=== PATIENT | male | born 1950 | race Caucasian/White ===

== ENCOUNTER 2021-12-13 11:57 | Emergency (ER) | payer MEDICARE, OTHER ==
[~2021-12-13] VITALS: Ht 182.9 cm; Wt 72.3 kg
[2021-12-13] MEDS ORDERED: HYDROCODONE/APAP 10/325MG TABLET ONE (12:59)
[2021-12-13] MEDS: HYDROCODONE/APAP 10/325MG TABLET PO ONE (13:02)
[2021-12-13 14:55] VITALS: BP 116/75
== END 2021-12-13 14:55 | disposition home or self-care (01) ==
LOC: ER 12:00
DX: G89.29 Other chronic pain (principal); M54.2 Cervicalgia; M19.90 Unspecified osteoarthritis, unspecified site; I10 Essential (primary) hypertension
CPT/HCPCS: 72125-TC

== ENCOUNTER 2022-11-30 19:49 | Emergency (ER) | payer MEDICARE, OTHER ==
[~2022-11-30] VITALS: Ht 190.5 cm; Wt 77.1 kg
[2022-11-30 20:15] VITALS: BP 142/81
--- NOTE | 2022-11-30 20:58 | NUR ---
Patient discharged to home in stable condition. Written and verbal after care instructions given. Patient verbalizes understanding of instruction.
== END 2022-11-30 21:02 | disposition home or self-care (01) ==
LOC: ER 19:55
DX: G89.29 Other chronic pain (principal); M54.50 Low back pain, unspecified; I10 Essential (primary) hypertension

== ENCOUNTER 2023-03-16 06:58 | Inpatient (IN) | payer MEDICARE, OTHER ==
[~2023-03-16] VITALS: Ht 190.5 cm; Wt 71.7 kg
[2023-03-16] MEDS ORDERED: OLANZAPINE 10 MG VIAL IM ONE ×3 (07:21→11:00)
[2023-03-16 07:42] LABS: BASOPHILS # (AUTO) 0.1 K/uL (0.0-0.2); BASOPHILS % (AUTO) 0.7 % (0.0-2.0); EOSINOPHILS % (AUTO) 0.4 % (0.0-6.0); HEMATOCRIT 42 % (39-51); HEMOGLOBIN 13.3 g/dL (13.5-17.5); LYMPHOCYTES # (AUTO) 1.2 K/uL (0.8-4.8); LYMPHOCYTES % (AUTO) 13.2 % (20.0-44.0); MEAN CORPUSCULAR HEMOGLOBIN 30 PG (26.0-33.0); MEAN CORPUSCULAR HGB CONC 32 g/dl (31.0-36.0); MEAN CORPUSCULAR VOLUME 93 fL (80-96); MONOCYTES # (AUTO) 0.6 K/uL (0.1-1.30); MONOCYTES % (AUTO) 6.4 % (2.0-12.0); NEUTROPHILS # (AUTO) 7.2 K/uL (1.8-8.9); NEUTROPHILS % (AUTO) 79.3 % (43.0-81.0); PLATELET COUNT (AUTO) 261 K/uL (150-450); RED BLOOD CELL COUNT(AUTO) 4.49 MIL/uL (4.5-6.0); RED CELL DISTRIBUTION WIDTH 15.4 % (11.5-15.0); WHITE BLOOD COUNT (AUTO) 9.1 K/uL (4.3-11.0)
[2023-03-16 07:57] LABS: ALANINE AMINOTRANSFERASE 25 U/L (12-78); ALBUMIN 4.1 g/dL (3.4-5.0); ALKALINE PHOSPHATASE 129 U/L (46-116); ASPARTATE AMINOTRANSFERASE 26 U/L (15-37); BILIRUBIN,DIRECT 0.2 mg/dL (0.0-0.2); BILIRUBIN,TOTAL 0.5 mg/dL (0.2-1.0); CALCIUM, SERUM 9.7 mg/dL (8.5-10.1); CARBON DIOXIDE 28 mmol/L (21-32); CHLORIDE 104 mmol/L (98-107); CREATININE 1.4 mg/dL (0.6-1.3); GLUCOSE 94 mg/dL (74-106); POTASSIUM 3.5 mmol/L (3.5-5.1); SODIUM SERUM 141 mmol/L (136-145); TOTAL PROTEIN, SERUM 8.5 g/dL (6.4-8.2); UREA NITROGEN, BLOOD 11 mg/dL (7-18)
[2023-03-16 08:00] LABS: ACETAMINOPHEN <10 ug/ml (10-30); ALCOHOL, BLOOD < 3 mg/dL (0-10); SALICYLATE 1.5 mg/dL (2.8-20.0)
[2023-03-16 08:16] LABS: APPEARANCE,URINE CLEAR (CLEAR); BILIRUBIN,URINE NEGATIVE (NEGATIVE); BLOOD, URINE NEGATIVE Ery/uL (NEGATIVE); COLOR,URINE YELLOW (YELLOW); KETONES,URINE NEGATIVE (NEGATIVE); LEUKOCYTE ESTERASE ,URINE NEGATIVE (NEGATIVE); NITRITE, URINE NEGATIVE (NEGATIVE); PH,URINE 7.5 (5.0-8.0); PROTEIN,URINE TRACE mg/dl (NEGATIVE); UGLUCOSE NEGATIVE (NEGATIVE); UROBILINOGEN,URINE 0.2 EU/dL (0.2)
[2023-03-16 08:29] LABS: AMPHETAMINE, URINE NEGATIVE (NEGATIVE); BARBITURATE, URINE NEGATIVE (NEGATIVE); BENZODIAZEPINE, URINE NEGATIVE (NEGATIVE); CANNABINOID, URINE POSITIVE (NEGATIVE); COCCAINE, URINE NEGATIVE (NEGATIVE); OPIATE, URINE NEGATIVE (NEGATIVE); PHENCYCLIDINE SCREEN,URINE NEGATIVE (NEGATIVE)
[2023-03-16] MEDS ORDERED: QUET100T PO (09:39)
[2023-03-16] MEDS ORDERED: HYDR-3976 PO (09:39)
[2023-03-16] MEDS ORDERED: AMLO-212 PO (09:39)
[2023-03-16] MEDS ORDERED: IPRA4AER INH (09:39)
[2023-03-16] MEDS ORDERED: LINA290C PO (09:39)
[2023-03-16] MEDS ORDERED: ALBU18HF2 INH (09:39)
[2023-03-16] MEDS ORDERED: SIME180C47 PO (09:42)
[2023-03-16] MEDS ORDERED: DOCU100C58 PO (09:42)
[2023-03-16 10:30] VITALS: BP 136/90; TEMP 97.4; O2SAT 96
[2023-03-16] MEDS ORDERED: MAG HYDROX/AL HYDROX/SIMETH 30 ML UDC PO PRN (10:30)
[2023-03-16] MEDS ORDERED: ACETAMINOPHEN 325 MG TABLET PO PRN (10:30)
[2023-03-16] MEDS ORDERED: LORAZEPAM 0.5 MG TABLET PO PRN (10:30)
[2023-03-16] MEDS ORDERED: MAGNESIUM HYDROXIDE 30 ML UDC PO PRN (10:30)
[2023-03-16] MEDS ORDERED: BLOOD SUGAR DIAGNOSTIC 1 EACH STRIP IN ONE (10:30)
[2023-03-16] MEDS ORDERED: HYDROCODONE/APAP 7.5/325MG 1 EACH TABLET PO PRN (14:00)
[2023-03-16] MEDS ORDERED: ALBUTEROL FS 2.5 MG/3 ML VIAL.NEB NEB PRN (14:00)
[2023-03-16 16:00] VITALS: BP 149/97; TEMP 97.6; O2SAT 96
[2023-03-16] MEDS: HYDROCODONE/APAP 5/325MG TABLET PO PRN (16:43)
[2023-03-16 18:04] LABS: CREATININE, URINE 72.6 MG/DL (30.0-125.0); URINE TOTAL PROTEIN 23.2 mg/dL (0-11.9)
[2023-03-16 20:00] VITALS: BP 129/82; TEMP 98; O2SAT 98
[2023-03-16] MEDS: OLANZAPINE ZYDIS 5 MG TAB.RAPDIS PO SCH (22:04)
[2023-03-16] MEDS: ZOLPIDEM TARTRATE 5 MG TABLET PO PRN (22:10)
[2023-03-17] MEDS: AMLODIPINE BESYLATE 5 MG TABLET PO SCH (08:46)
[2023-03-17] MEDS: NICOTINE PATCH (14MG) 14 MG PATCH.TD24 TD SCH (08:46)
[2023-03-17] MEDS: OLANZAPINE ZYDIS 5 MG TAB.RAPDIS PO SCH ×2 (08:50→21:46)
[2023-03-17] MEDS: DOCUSATE SODIUM 100 MG CAPSULE PO SCH (08:50)
[2023-03-17] MEDS: ZOLPIDEM TARTRATE 5 MG TABLET PO PRN (23:13)
[2023-03-18 08:00] VITALS: BP 100/59; TEMP 98; O2SAT 100
[2023-03-18] MEDS: NICOTINE PATCH (14MG) 14 MG PATCH.TD24 TD SCH (08:04)
[2023-03-18] MEDS: DOCUSATE SODIUM 100 MG CAPSULE PO SCH (08:04)
[2023-03-18] MEDS: AMLODIPINE BESYLATE 5 MG TABLET PO SCH (08:05)
[2023-03-18] MEDS: OLANZAPINE ZYDIS 5 MG TAB.RAPDIS PO SCH ×2 (08:05→21:15)
[2023-03-18 15:14] LABS: CHOLESTEROL 192 mg/dL (<200); HDL CHOLESTEROL 75 mg/dL (40-60); LDL 88 mg/dL (0-99); TRIGLYCERIDES 163 mg/dL (30-150)
[2023-03-18 16:14] VITALS: BP 103/71; TEMP 98.7; O2SAT 97
[2023-03-18 20:20] VITALS: BP 118/78; TEMP 97.9; O2SAT 97
[2023-03-18] MEDS: HYDROCODONE/APAP 5/325MG TABLET PO PRN (22:24)
[2023-03-19 07:41] LABS: BASOPHILS % (AUTO) 0.9 % (0.0-2.0); EOSINOPHILS # (AUTO) 0.1 K/uL (0.0-0.7); EOSINOPHILS % (AUTO) 2.4 % (0.0-6.0); HEMATOCRIT 38 % (39-51); HEMOGLOBIN 12.2 g/dL (13.5-17.5); LYMPHOCYTES # (AUTO) 2.4 K/uL (0.8-4.8); LYMPHOCYTES % (AUTO) 50.6 % (20.0-44.0); MEAN CORPUSCULAR HEMOGLOBIN 30 PG (26.0-33.0); MEAN CORPUSCULAR HGB CONC 32 g/dl (31.0-36.0); MEAN CORPUSCULAR VOLUME 93 fL (80-96); MONOCYTES # (AUTO) 0.4 K/uL (0.1-1.30); MONOCYTES % (AUTO) 9.1 % (2.0-12.0); NEUTROPHILS # (AUTO) 1.8 K/uL (1.8-8.9); PLATELET COUNT (AUTO) 218 K/uL (150-450); RED BLOOD CELL COUNT(AUTO) 4.09 MIL/uL (4.5-6.0); RED CELL DISTRIBUTION WIDTH 15.1 % (11.5-15.0); WHITE BLOOD COUNT (AUTO) 4.8 K/uL (4.3-11.0)
[2023-03-19 08:00] VITALS: BP 99/74; TEMP 98.1; O2SAT 97
[2023-03-19 08:13] LABS: ALBUMIN 2.8 g/dL (3.4-5.0); BILIRUBIN,TOTAL 0.3 mg/dL (0.2-1.0); CALCIUM, SERUM 8.7 mg/dL (8.5-10.1); CREATININE 1.4 mg/dL (0.6-1.3); PHOSPHORUS 3.5 mg/dL (2.5-4.9); POTASSIUM 3.4 mmol/L (3.5-5.1); TOTAL PROTEIN, SERUM 6.5 g/dL (6.4-8.2)
[2023-03-19] MEDS: AMLODIPINE BESYLATE 5 MG TABLET PO SCH (09:00)
[2023-03-19] MEDS: NICOTINE PATCH (14MG) 14 MG PATCH.TD24 TD SCH (09:30)
[2023-03-19] MEDS: DOCUSATE SODIUM 100 MG CAPSULE PO SCH (09:30)
[2023-03-19] MEDS: OLANZAPINE ZYDIS 5 MG TAB.RAPDIS PO SCH ×2 (09:30→21:40)
[2023-03-19] MEDS ORDERED: POTASSIUM CHLORIDE 20 MEQ TAB.PRT.SR PO SCH (11:00)
[2023-03-19 15:55] VITALS: BP 99/74; TEMP 97.8; O2SAT 97
[2023-03-19 15:57] VITALS: BP 101/76; TEMP 97.8; O2SAT 92
[2023-03-19 16:00] VITALS: BP 101/76; TEMP 97.8; O2SAT 92
[2023-03-19] MEDS: HYDROCODONE/APAP 5/325MG TABLET PO PRN (17:20)
[2023-03-19 20:20] VITALS: BP 96/58; TEMP 98.4; O2SAT 97
[2023-03-20 08:00] VITALS: BP 119/81; TEMP 98.7; O2SAT 97
[2023-03-20] MEDS: AMLODIPINE BESYLATE 5 MG TABLET PO SCH (09:36)
[2023-03-20] MEDS: NICOTINE PATCH (14MG) 14 MG PATCH.TD24 TD SCH (09:37)
[2023-03-20] MEDS: DOCUSATE SODIUM 100 MG CAPSULE PO SCH (09:37)
[2023-03-20] MEDS: OLANZAPINE ZYDIS 5 MG TAB.RAPDIS PO SCH ×2 (09:37→20:37)
[2023-03-20 16:00] VITALS: BP 121/93; TEMP 98.4; O2SAT 99
[2023-03-20 20:06] VITALS: BP 113/78; TEMP 98.6; O2SAT 98
[2023-03-21 08:00] VITALS: BP 121/91; TEMP 97.7; O2SAT 97
[2023-03-21] MEDS: NICOTINE PATCH (14MG) 14 MG PATCH.TD24 TD SCH (08:35)
[2023-03-21] MEDS: AMLODIPINE BESYLATE 5 MG TABLET PO SCH (08:36)
[2023-03-21] MEDS: OLANZAPINE ZYDIS 5 MG TAB.RAPDIS PO SCH ×2 (08:36→21:00)
[2023-03-21] MEDS: DOCUSATE SODIUM 100 MG CAPSULE PO SCH (08:36)
[2023-03-21 16:00] VITALS: BP 101/68; TEMP 97.9; O2SAT 100
[2023-03-21 20:00] VITALS: BP 127/90; TEMP 97.5; O2SAT 99
[2023-03-22 08:00] VITALS: BP 109/73; TEMP 97.7; O2SAT 98
[2023-03-22] MEDS: DOCUSATE SODIUM 100 MG CAPSULE PO SCH (08:25)
[2023-03-22] MEDS: NICOTINE PATCH (14MG) 14 MG PATCH.TD24 TD SCH (08:25)
[2023-03-22] MEDS: OLANZAPINE ZYDIS 5 MG TAB.RAPDIS PO SCH ×2 (08:25→21:00)
[2023-03-22] MEDS: AMLODIPINE BESYLATE 5 MG TABLET PO SCH (08:26)
[2023-03-22 16:00] VITALS: BP 113/69; TEMP 98.9; O2SAT 96
[2023-03-22] MEDS: HYDROCODONE/APAP 5/325MG TABLET PO PRN (19:40)
[2023-03-22 20:47] VITALS: BP 110/72; TEMP 98; O2SAT 99
[2023-03-23 07:22] LABS: BASOPHILS # (AUTO) 0.1 K/uL (0.0-0.2); BASOPHILS % (AUTO) 1.2 % (0.0-2.0); EOSINOPHILS # (AUTO) 0.1 K/uL (0.0-0.7); EOSINOPHILS % (AUTO) 2.3 % (0.0-6.0); HEMATOCRIT 41 % (39-51); HEMOGLOBIN 13.2 g/dL (13.5-17.5); LYMPHOCYTES # (AUTO) 2.1 K/uL (0.8-4.8); LYMPHOCYTES % (AUTO) 43.8 % (20.0-44.0); MEAN CORPUSCULAR HEMOGLOBIN 30 PG (26.0-33.0); MEAN CORPUSCULAR HGB CONC 32 g/dl (31.0-36.0); MEAN CORPUSCULAR VOLUME 94 fL (80-96); MONOCYTES # (AUTO) 0.5 K/uL (0.1-1.30); MONOCYTES % (AUTO) 10.2 % (2.0-12.0); NEUTROPHILS % (AUTO) 42.5 % (43.0-81.0); PLATELET COUNT (AUTO) 235 K/uL (150-450); RED BLOOD CELL COUNT(AUTO) 4.42 MIL/uL (4.5-6.0); RED CELL DISTRIBUTION WIDTH 14.8 % (11.5-15.0); WHITE BLOOD COUNT (AUTO) 4.8 K/uL (4.3-11.0)
[2023-03-23 07:45] LABS: ALBUMIN 3.1 g/dL (3.4-5.0); BILIRUBIN,TOTAL 0.3 mg/dL (0.2-1.0); CALCIUM, SERUM 9.5 mg/dL (8.5-10.1); CREATININE 1.3 mg/dL (0.6-1.3); MAGNESIUM 2.3 mg/dL (1.8-2.4); PHOSPHORUS 3.6 mg/dL (2.5-4.9); POTASSIUM 4.2 mmol/L (3.5-5.1); TOTAL PROTEIN, SERUM 7.1 g/dL (6.4-8.2)
[2023-03-23 08:00] VITALS: BP 104/78; TEMP 97.9; O2SAT 100
[2023-03-23] MEDS: DOCUSATE SODIUM 100 MG CAPSULE PO SCH (08:38)
[2023-03-23] MEDS: OLANZAPINE ZYDIS 5 MG TAB.RAPDIS PO SCH ×2 (08:38→21:07)
[2023-03-23] MEDS: NICOTINE PATCH (14MG) 14 MG PATCH.TD24 TD SCH (08:38)
[2023-03-23] MEDS: AMLODIPINE BESYLATE 5 MG TABLET PO SCH (08:39)
[2023-03-23] MEDS: HYDROCODONE/APAP 5/325MG TABLET PO PRN (14:31)
[2023-03-23 16:00] VITALS: BP 91/60; TEMP 98; O2SAT 100
[2023-03-23 20:00] VITALS: BP 115/71; TEMP 97.6; O2SAT 99
[2023-03-24 08:07] VITALS: BP 95/77; TEMP 97.5; O2SAT 96
[2023-03-24] MEDS: AMLODIPINE BESYLATE 5 MG TABLET PO SCH (08:54)
[2023-03-24] MEDS: ENSURE ENLIVE 237 ML LIQUID (VANILLA) PO SCH (08:54)
[2023-03-24] MEDS: OLANZAPINE ZYDIS 5 MG TAB.RAPDIS PO SCH ×2 (08:55→20:20)
[2023-03-24] MEDS: DOCUSATE SODIUM 100 MG CAPSULE PO SCH (08:55)
[2023-03-24] MEDS: NICOTINE PATCH (14MG) 14 MG PATCH.TD24 TD SCH (08:55)
[2023-03-24 15:58] VITALS: BP 124/76; TEMP 97.9; O2SAT 97
[2023-03-24] MEDS: HYDROCODONE/APAP 5/325MG TABLET PO PRN (16:24)
[2023-03-24 20:18] VITALS: BP 98/65; TEMP 98.1; O2SAT 96
[2023-03-24] MEDS: ZOLPIDEM TARTRATE 5 MG TABLET PO PRN (22:00)
[2023-03-25 08:00] VITALS: BP 102/74; TEMP 97.9; O2SAT 97
[2023-03-25] MEDS: DOCUSATE SODIUM 100 MG CAPSULE PO SCH (08:10)
[2023-03-25] MEDS: NICOTINE PATCH (14MG) 14 MG PATCH.TD24 TD SCH (08:10)
[2023-03-25] MEDS: OLANZAPINE ZYDIS 5 MG TAB.RAPDIS PO SCH ×2 (08:10→21:47)
[2023-03-25] MEDS: HYDROCODONE/APAP 5/325MG TABLET PO PRN ×2 (08:11→18:42)
[2023-03-25] MEDS: AMLODIPINE BESYLATE 5 MG TABLET PO SCH (08:12)
[2023-03-25] MEDS: ENSURE ENLIVE 237 ML LIQUID (VANILLA) PO SCH (08:23)
[2023-03-25 16:00] VITALS: BP 99/66; TEMP 98.6; O2SAT 100
[2023-03-25 20:17] VITALS: BP 103/77; TEMP 99; O2SAT 97
[2023-03-25] MEDS: ZOLPIDEM TARTRATE 5 MG TABLET PO PRN (21:48)
[2023-03-26 08:00] VITALS: BP 100/69; TEMP 98; O2SAT 95
[2023-03-26] MEDS: AMLODIPINE BESYLATE 5 MG TABLET PO SCH (08:49)
[2023-03-26] MEDS: ENSURE ENLIVE 237 ML LIQUID (VANILLA) PO SCH (08:49)
[2023-03-26] MEDS: NICOTINE PATCH (14MG) 14 MG PATCH.TD24 TD SCH (08:49)
[2023-03-26] MEDS: DOCUSATE SODIUM 100 MG CAPSULE PO SCH (08:49)
[2023-03-26] MEDS: OLANZAPINE ZYDIS 5 MG TAB.RAPDIS PO SCH ×2 (08:49→20:10)
[2023-03-26] MEDS: HYDROCODONE/APAP 5/325MG TABLET PO PRN ×2 (08:53→17:26)
[2023-03-26 16:00] VITALS: BP 100/55; TEMP 97.9; O2SAT 96
[2023-03-26 20:59] VITALS: BP 101/64; TEMP 98.8; O2SAT 98
[2023-03-26] MEDS: ZOLPIDEM TARTRATE 5 MG TABLET PO PRN (22:26)
[2023-03-27 08:00] VITALS: BP 119/83; TEMP 98.6; O2SAT 99
[2023-03-27] MEDS: OLANZAPINE ZYDIS 5 MG TAB.RAPDIS PO SCH (08:19)
[2023-03-27] MEDS: DOCUSATE SODIUM 100 MG CAPSULE PO SCH (08:19)
[2023-03-27] MEDS: HYDROCODONE/APAP 5/325MG TABLET PO PRN (08:19)
[2023-03-27] MEDS: NICOTINE PATCH (14MG) 14 MG PATCH.TD24 TD SCH (08:19)
[2023-03-27 08:20] VITALS: BP 118/93
[2023-03-27] MEDS: AMLODIPINE BESYLATE 5 MG TABLET PO SCH (08:20)
[2023-03-27] MEDS: ENSURE ENLIVE 237 ML LIQUID (VANILLA) PO SCH (08:20)
[2023-03-27] MEDS ORDERED: LINA290C PO (10:44)
[2023-03-27] MEDS ORDERED: DOCU100C58 PO (10:44)
[2023-03-27] MEDS ORDERED: ALBU18HF2 INH (10:44)
[2023-03-27] MEDS ORDERED: SIME180C47 PO (10:44)
[2023-03-27] MEDS ORDERED: AMLO-212 PO (10:44)
[2023-03-27] MEDS ORDERED: IPRA4AER INH (10:44)
[2023-03-27] MEDS ORDERED: HYDR-3976 PO (10:48)
== END 2023-03-27 14:40 | disposition home or self-care (01) | DRG 885 ==
LOC: ER 07:11 → GPS 09:47
PROVIDERS: ADMIT Psychiatry & Neurology Psychiatry; ATTEND Nurse Practitioner Acute Care
DX: F20.0 Paranoid schizophrenia (principal); N17.9 Acute kidney failure, unspecified; F29 Unspecified psychosis not due to a substance or known physiological condition; I10 Essential (primary) hypertension; M41.9 Scoliosis, unspecified; F03.90 Unspecified dementia, unspecified severity, without behavioral disturbance, psychotic disturbance, mood disturbance, and anxiety; F19.10 Other psychoactive substance abuse, uncomplicated; Z79.51 Long term (current) use of inhaled steroids; Z79.899 Other long term (current) drug therapy; D64.9 Anemia, unspecified; E88.9 Metabolic disorder, unspecified
CPT/HCPCS: 36415; 80048-TC; 80053-TC; 80061-TC; 80076-TC; 82570-TC; 82962-TC; 83735-TC; 84100-TC; 84300-TC; 85025-TC; G0480; J3490

== ENCOUNTER 2023-04-24 00:37 | Emergency (ER) | payer MEDICARE, OTHER ==
[~2023-04-24] VITALS: Ht 190.5 cm; Wt 72.6 kg
[~2023-04-24 00:37] MED LIST: ALBU18HF2 INH; AMLO-212 PO; DOCU100C58 PO; HYDR-3976 PO; IPRA4AER INH; LINA290C PO; SIME180C47 PO
[2023-04-24 08:49] VITALS: BP 135/66; TEMP 98.2; O2SAT 98
== END 2023-04-24 08:50 ==
LOC: ER 00:38
DX: M54.50 Low back pain, unspecified (principal); I10 Essential (primary) hypertension; E11.9 Type 2 diabetes mellitus without complications; F20.9 Schizophrenia, unspecified; Z79.899 Other long term (current) drug therapy; Z60.2 Problems related to living alone
CPT/HCPCS: 72131-TC

== ENCOUNTER 2023-07-09 02:15 | Inpatient (IN) | payer MEDICARE, OTHER ==
[2023-07-09] VITALS (15 sets, daily range): BP systolic 118–160; BP diastolic 86–103; TEMP 97.5–98.2; O2SAT 100
[~2023-07-09] VITALS: Ht 190.5 cm; Wt 77.1 kg
[2023-07-09] MEDS ORDERED: NALOXONE PREFILLED SYRINGE 2 MG/2 ML SYRINGE ONE ×3 (02:43→02:59)
[2023-07-09] MEDS ORDERED: NALOXONE HCL 0.4 MG/ML AMPUL IV ONE (03:00)
[2023-07-09 03:11] LABS: BASOPHILS % (AUTO) 0.3 % (0.0-2.0); EOSINOPHILS # (AUTO) 0.1 K/uL (0.0-0.7); EOSINOPHILS % (AUTO) 1.8 % (0.0-6.0); HEMATOCRIT 36 % (39-51); HEMOGLOBIN 11.6 g/dL (13.5-17.5); LYMPHOCYTES # (AUTO) 1.3 K/uL (0.8-4.8); LYMPHOCYTES % (AUTO) 22.1 % (20.0-44.0); MEAN CORPUSCULAR HEMOGLOBIN 30 PG (26.0-33.0); MEAN CORPUSCULAR HGB CONC 32 g/dl (31.0-36.0); MEAN CORPUSCULAR VOLUME 93 fL (80-96); MONOCYTES # (AUTO) 0.5 K/uL (0.1-1.30); MONOCYTES % (AUTO) 9.1 % (2.0-12.0); NEUTROPHILS # (AUTO) 3.8 K/uL (1.8-8.9); NEUTROPHILS % (AUTO) 66.7 % (43.0-81.0); PLATELET COUNT (AUTO) 200 K/uL (150-450); RED BLOOD CELL COUNT(AUTO) 3.89 MIL/uL (4.5-6.0); RED CELL DISTRIBUTION WIDTH 15.4 % (11.5-15.0); WHITE BLOOD COUNT (AUTO) 5.7 K/uL (4.3-11.0)
[2023-07-09 03:14] LABS: ADD URINE CULTURE YES; APPEARANCE,URINE CLEAR (CLEAR); BACTERIA,URINE Few /HPF (None Seen); BILIRUBIN,URINE NEGATIVE (NEGATIVE); BLOOD, URINE NEGATIVE Ery/uL (NEGATIVE); COLOR,URINE YELLOW (YELLOW); KETONES,URINE NEGATIVE (NEGATIVE); LEUKOCYTE ESTERASE ,URINE NEGATIVE (NEGATIVE); NITRITE, URINE POSITIVE (NEGATIVE); PH,URINE 5.5 (5.0-8.0); PROTEIN,URINE NEGATIVE (NEGATIVE); RBC,URINE 0-2 /HPF (0-2); SQUAMOUS EPITHELIAL CELL,UR Rare /HPF (None Seen); UGLUCOSE NEGATIVE (NEGATIVE); UROBILINOGEN,URINE 0.2 EU/dL (0.2)
[2023-07-09 03:21] LABS: CALCIUM, SERUM 9.4 mg/dL (8.5-10.1); CARBON DIOXIDE 27 mmol/L (21-32); CHLORIDE 105 mmol/L (98-107); CREATININE 1.7 mg/dL (0.6-1.3); GLUCOSE 111 mg/dL (74-106); POTASSIUM 3.5 mmol/L (3.5-5.1); SODIUM SERUM 140 mmol/L (136-145); UREA NITROGEN, BLOOD 15 mg/dL (7-18)
[2023-07-09 03:22] LABS: AMPHETAMINE, URINE NEGATIVE (NEGATIVE); BARBITURATE, URINE NEGATIVE (NEGATIVE); BENZODIAZEPINE, URINE NEGATIVE (NEGATIVE); CANNABINOID, URINE NEGATIVE (NEGATIVE); COCCAINE, URINE NEGATIVE (NEGATIVE); OPIATE, URINE NEGATIVE (NEGATIVE); PHENCYCLIDINE SCREEN,URINE NEGATIVE (NEGATIVE)
[2023-07-09 03:27] LABS: ACETAMINOPHEN < 10 ug/ml (10-30); ALANINE AMINOTRANSFERASE 16 U/L (12-78); ALBUMIN 3.4 g/dL (3.4-5.0); ALCOHOL, BLOOD < 3 mg/dL (0-10); ALKALINE PHOSPHATASE 109 U/L (46-116); ASPARTATE AMINOTRANSFERASE 14 U/L (15-37); BILIRUBIN,DIRECT 0.1 mg/dL (0.0-0.2); BILIRUBIN,TOTAL 0.2 mg/dL (0.2-1.0); SALICYLATE 2.5 mg/dL (2.8-20.0); TOTAL PROTEIN, SERUM 7.5 g/dL (6.4-8.2)
[2023-07-09] MEDS ORDERED: PROPOFOL 100 ML ONE (03:48)
[2023-07-09] MEDS ORDERED: PROPOFOL 100 ML IV PRN (04:00)
[2023-07-09] MEDS ORDERED: CEFTRIAXONE 1GM BAG (ER ONLY) 50 ML IV ONE ×2 (04:00→04:37)
[2023-07-09 04:32] LABS: THYROID STIMULATING HORMONE 1.092 uIU/mL (0.358-3.74)
[2023-07-09] MEDS ORDERED: ACETAMINOPHEN 650 MG/SUPP.RECT RC PRN (06:30)
[2023-07-09] MEDS ORDERED: Z GUARD REMEDY 4 OZ OINT TP PRN (06:30)
[2023-07-09] MEDS ORDERED: ONDANSETRON HCL/PF 4 MG/2 ML VIAL IVP PRN (06:30)
[2023-07-09] MEDS: PANTOPRAZOLE 40 MG VIAL IV SCH (08:20)
[2023-07-09] MEDS: HEPARIN SODIUM, PORCINE 5000 UNITS/1 ML VIAL SQ SCH ×2 (08:23→21:00)
[2023-07-09] MEDS: IV D5/0.45 NACL 1,000 ML IV PRN ×2 (08:25→20:53)
[2023-07-09] MEDS ORDERED: SUCCINYLCHOLINE CHLORIDE 20 MG/ML VIAL IV ONE (10:09)
[2023-07-09] MEDS ORDERED: ETOMIDATE 2 MG/ML VIAL IV ONE (10:09)
[2023-07-09] MEDS: PROPOFOL 100 ML IV PRN ×2 (15:03→20:45)
[2023-07-09 19:29] LABS: APPEARANCE,URINE CLEAR (CLEAR); BILIRUBIN,URINE NEGATIVE (NEGATIVE); BLOOD, URINE NEGATIVE Ery/uL (NEGATIVE); COLOR,URINE YELLOW (YELLOW); KETONES,URINE NEGATIVE (NEGATIVE); LEUKOCYTE ESTERASE ,URINE NEGATIVE (NEGATIVE); NITRITE, URINE NEGATIVE (NEGATIVE); PROTEIN,URINE NEGATIVE (NEGATIVE); UGLUCOSE NEGATIVE (NEGATIVE); UROBILINOGEN,URINE 0.2 EU/dL (0.2)
[2023-07-09 19:35] LABS: CREATININE, URINE 84.1 MG/DL (30.0-125.0); URINE TOTAL PROTEIN 15.1 mg/dL (0-11.9)
[2023-07-09 20:18] LABS: EOSINOPHIL,URINE None Seen
[2023-07-10] VITALS (25 sets, daily range): BP systolic 106–152; BP diastolic 80–104; TEMP 98–98.5; O2SAT 96–100
[2023-07-10] MEDS: PROPOFOL 100 ML IV PRN ×5 (00:48→09:40)
[2023-07-10] MEDS ORDERED: PROPOFOL 100 ML IV PRN ×2 (04:30→05:00)
[2023-07-10 05:42] LABS: BASOPHILS # (AUTO) 0.1 K/uL (0.0-0.2); BASOPHILS % (AUTO) 0.9 % (0.0-2.0); EOSINOPHILS # (AUTO) 0.1 K/uL (0.0-0.7); EOSINOPHILS % (AUTO) 1.4 % (0.0-6.0); HEMATOCRIT 41 % (39-51); HEMOGLOBIN 13.3 g/dL (13.5-17.5); LYMPHOCYTES # (AUTO) 1.2 K/uL (0.8-4.8); MEAN CORPUSCULAR HEMOGLOBIN 30 PG (26.0-33.0); MEAN CORPUSCULAR HGB CONC 33 g/dl (31.0-36.0); MEAN CORPUSCULAR VOLUME 93 fL (80-96); MONOCYTES # (AUTO) 0.6 K/uL (0.1-1.30); MONOCYTES % (AUTO) 7.7 % (2.0-12.0); NEUTROPHILS # (AUTO) 5.2 K/uL (1.8-8.9); PLATELET COUNT (AUTO) 192 K/uL (150-450); RED BLOOD CELL COUNT(AUTO) 4.39 MIL/uL (4.5-6.0); RED CELL DISTRIBUTION WIDTH 16.1 % (11.5-15.0); WHITE BLOOD COUNT (AUTO) 7.2 K/uL (4.3-11.0)
[2023-07-10 05:59] LABS: ALBUMIN 3.2 g/dL (3.4-5.0); BILIRUBIN,TOTAL 0.2 mg/dL (0.2-1.0); CALCIUM, SERUM 9.2 mg/dL (8.5-10.1); CREATININE 1.2 mg/dL (0.6-1.3); MAGNESIUM 1.9 mg/dL (1.8-2.4); PHOSPHORUS 3.2 mg/dL (2.5-4.9); POTASSIUM 3.6 mmol/L (3.5-5.1); TOTAL PROTEIN, SERUM 7.3 g/dL (6.4-8.2)
[2023-07-10] MEDS: CEFTRIAXONE 1 G in IV D5W 50 ML IV SCH (06:03)
[2023-07-10] MEDS: PANTOPRAZOLE 40 MG VIAL IV SCH (08:01)
[2023-07-10 08:02] LABS: ABG OXYGEN SATURATION 97.7 % (92.0-98.5); ABG PCO2 43.7 mmHg (35.0-45.0); ABG PH 7.396 (7.350-7.450); ABG PO2 106.4 mmHg (75.0-100.0); ABG TOTAL HEMOGLOBIN 14.1 G/dL (13.5-18.0); AaDO2 128.5 mmHg; COHb 0.7 % (0.5-1.5); MetHb 0.3 % (0.0-1.5); O2Hb 96.7 % (94.0-97.0); PEEP,BG 5 cm H2O; SITE, ABG Right Brachial; VT, ABG 450 mL
[2023-07-10] MEDS: IV D5/0.45 NACL 1,000 ML IV PRN ×2 (08:02→23:01)
[2023-07-10] MEDS: HEPARIN SODIUM, PORCINE 5000 UNITS/1 ML VIAL SQ SCH ×2 (08:06→21:33)
[2023-07-10] MEDS ORDERED: DC PROPOFOL WHEN EXTUBATED XX PRN (12:40)
[2023-07-11] VITALS (23 sets, daily range): BP systolic 130–155; BP diastolic 87–105; TEMP 98.4–209.1; O2SAT 91–99
[2023-07-11] MEDS: CEFTRIAXONE 1 G in IV D5W 50 ML IV SCH (05:00)
[2023-07-11 05:02] LABS: BASOPHILS # (AUTO) 0.2 K/uL (0.0-0.2); BASOPHILS % (AUTO) 2.3 % (0.0-2.0); EOSINOPHILS # (AUTO) 0.1 K/uL (0.0-0.7); EOSINOPHILS % (AUTO) 1.5 % (0.0-6.0); HEMATOCRIT 39 % (39-51); HEMOGLOBIN 12.8 g/dL (13.5-17.5); LYMPHOCYTES # (AUTO) 1.7 K/uL (0.8-4.8); LYMPHOCYTES % (AUTO) 19.5 % (20.0-44.0); MEAN CORPUSCULAR HEMOGLOBIN 30 PG (26.0-33.0); MEAN CORPUSCULAR HGB CONC 33 g/dl (31.0-36.0); MEAN CORPUSCULAR VOLUME 91 fL (80-96); MONOCYTES # (AUTO) 0.7 K/uL (0.1-1.30); NEUTROPHILS # (AUTO) 5.9 K/uL (1.8-8.9); NEUTROPHILS % (AUTO) 68.7 % (43.0-81.0); PLATELET COUNT (AUTO) 217 K/uL (150-450); RED BLOOD CELL COUNT(AUTO) 4.25 MIL/uL (4.5-6.0); RED CELL DISTRIBUTION WIDTH 15.4 % (11.5-15.0); WHITE BLOOD COUNT (AUTO) 8.5 K/uL (4.3-11.0)
[2023-07-11 05:20] LABS: CALCIUM, SERUM 8.8 mg/dL (8.5-10.1); CREATININE 1.3 mg/dL (0.6-1.3); MAGNESIUM 1.9 mg/dL (1.8-2.4); PHOSPHORUS 2.9 mg/dL (2.5-4.9); POTASSIUM 3.5 mmol/L (3.5-5.1)
[2023-07-11 08:09] LABS: PTH, INTACT 19 pg/mL (15-65)
[2023-07-11] MEDS ORDERED: IPRATROPIUM NEB FS 0.5 MG/2.5 ML AMPUL.NEB NEB PRN (09:00)
[2023-07-11] MEDS ORDERED: ALBUTEROL HALF STRENGTH 1.25 MG/3 ML VIAL.NEB NEB PRN (09:00)
[2023-07-11] MEDS: PANTOPRAZOLE 40 MG VIAL IV SCH (09:11)
[2023-07-11] MEDS: HEPARIN SODIUM, PORCINE 5000 UNITS/1 ML VIAL SQ SCH ×2 (09:26→21:12)
[2023-07-11 12:09] LABS: *SPE ALBUMIN 3.4 g/dL (2.9-4.4); *SPE ALPHA-1-GLOBULIN 0.3 g/dL (0.0-0.4); *SPE ALPHA-2-GLOBULIN 0.8 g/dL (0.4-1.0); *SPE BETA GLOBULIN 1.1 g/dL (0.7-1.3); *SPE GLOBULIN, TOTAL 3.5 g/dL (2.2-3.9); *SPE M-SPIKE Not Observed g/dL (Not Observed); *SPE PROTEIN TOTAL 6.9 g/dL (6.0-8.5); *SPEGAMMA GLOBULIN 1.4 g/dL (0.4-1.8)
[2023-07-11 12:42] LABS: ABG BASE EXCESS 2.7 mmol/L; ABG OXYGEN SATURATION 98.4 % (92.0-98.5); ABG PCO2 40.6 mmHg (35.0-45.0); ABG PH 7.441 (7.350-7.450); ABG TOTAL HEMOGLOBIN 14.2 G/dL (13.5-18.0); AaDO2 111.5 mmHg; COHb 0.6 % (0.5-1.5); MetHb 0.3 % (0.0-1.5); O2Hb 97.5 % (94.0-97.0); SITE, ABG Right Radial; VENT MODE, BG PS 15
[2023-07-11] MEDS: IV D5/0.45 NACL 1,000 ML IV PRN (13:33)
[2023-07-12] MEDS: IV D5/0.45 NACL 1,000 ML IV PRN (03:04)
[2023-07-12] MEDS ORDERED: CEFTRIAXONE 1GM BAG (ER ONLY) 50 ML IV ONE (04:33)
[2023-07-12] MEDS: CEFTRIAXONE 1 G in IV D5W 50 ML IV SCH (05:08)
[2023-07-12 07:17] LABS: BASOPHILS % (AUTO) 0.4 % (0.0-2.0); EOSINOPHILS # (AUTO) 0.1 K/uL (0.0-0.7); EOSINOPHILS % (AUTO) 1.2 % (0.0-6.0); HEMATOCRIT 39 % (39-51); LYMPHOCYTES # (AUTO) 1.8 K/uL (0.8-4.8); LYMPHOCYTES % (AUTO) 26.4 % (20.0-44.0); MEAN CORPUSCULAR HEMOGLOBIN 30 PG (26.0-33.0); MEAN CORPUSCULAR HGB CONC 33 g/dl (31.0-36.0); MEAN CORPUSCULAR VOLUME 92 fL (80-96); MONOCYTES # (AUTO) 0.7 K/uL (0.1-1.30); MONOCYTES % (AUTO) 9.5 % (2.0-12.0); NEUTROPHILS # (AUTO) 4.3 K/uL (1.8-8.9); NEUTROPHILS % (AUTO) 62.5 % (43.0-81.0); PLATELET COUNT (AUTO) 222 K/uL (150-450); RED BLOOD CELL COUNT(AUTO) 4.27 MIL/uL (4.5-6.0); RED CELL DISTRIBUTION WIDTH 14.9 % (11.5-15.0); WHITE BLOOD COUNT (AUTO) 6.9 K/uL (4.3-11.0)
[2023-07-12 07:22] LABS: ALBUMIN 2.8 g/dL (3.4-5.0); BILIRUBIN,TOTAL 0.5 mg/dL (0.2-1.0); CREATININE 1.3 mg/dL (0.6-1.3); MAGNESIUM 2.1 mg/dL (1.8-2.4); POTASSIUM 3.3 mmol/L (3.5-5.1); TOTAL PROTEIN, SERUM 7.3 g/dL (6.4-8.2)
[2023-07-12 07:51] LABS: CALCIUM, SERUM 9.2 mg/dL (8.5-10.1)
[2023-07-12] MEDS: PANTOPRAZOLE 40 MG VIAL IV SCH (08:28)
[2023-07-12] MEDS: HEPARIN SODIUM, PORCINE 5000 UNITS/1 ML VIAL SQ SCH (08:29)
[2023-07-12] MEDS: POTASSIUM CL. PREMIX PERIPHER. 50 ML IV SCH ×2 (09:38→11:39)
== END 2023-07-12 19:35 | DRG 917 ==
LOC: ER 02:16 → TRANSITION 05:31 → ICU 07:29 → MED 07-11 15:30
PROVIDERS: ADMIT Nurse Practitioner Acute Care
PROC: 5A1945Z Respiratory Ventilation, 24-96 Consecutive Hours (ICD-10-PCS; principal; 2023-07-09)
PROC: 0BH17EZ Insertion of Endotracheal Airway into Trachea, Via Natural or Artificial Opening (ICD-10-PCS; 2023-07-09)
DX: T40.2X1A Poisoning by other opioids, accidental (unintentional), initial encounter (principal); G92.8 Other toxic encephalopathy; J96.01 Acute respiratory failure with hypoxia; J96.02 Acute respiratory failure with hypercapnia; N39.0 Urinary tract infection, site not specified; J98.11 Atelectasis; N17.9 Acute kidney failure, unspecified; E11.22 Type 2 diabetes mellitus with diabetic chronic kidney disease; F20.9 Schizophrenia, unspecified; G89.29 Other chronic pain; K58.9 Irritable bowel syndrome, unspecified; N18.9 Chronic kidney disease, unspecified; E83.9 Disorder of mineral metabolism, unspecified; I12.9 Hypertensive chronic kidney disease with stage 1 through stage 4 chronic kidney disease, or unspecified chronic kidney disease; D64.9 Anemia, unspecified; M89.8X9 Other specified disorders of bone, unspecified site; Z20.822 Contact with and (suspected) exposure to COVID-19; Y92.009 Unspecified place in unspecified non-institutional (private) residence as the place of occurrence of the external cause
CPT/HCPCS: 31720; 36415; 36600; 70450-TC; 71045-TC; 76770-TC; 80048-TC; 80053-TC; 80061-TC; 80076-TC; 81001; 82140-TC; 82550-TC; 82570-TC; 82803-TC; 82962-TC; 83735-TC; 83970; 84100-TC; 84155; 84165; 84300-TC; 84443-TC; 84484-TC; 85025-TC; 87040-TC; 87086-TC; 92526; 92611-TC; 93307-TC; 94002-TC; 94003-TC; 94799-TC; A4223; C9113; G0378; G0480; J0330; J0696; J1644; J2310; J3480; J3490; J7060

== ENCOUNTER 2024-06-21 21:51 | Inpatient (IN) | payer MEDICARE, OTHER ==
[~2024-06-21] VITALS: Ht 185.4 cm; Wt 83.9 kg
[~2024-06-21 21:51] MED LIST changes: +ALBU8.5H8 IH; +AMLO5TAB4 PO; +HYDR-4303 PO; +IBUP-1955 PO; +IPRA4AER IH; +METH-647 PO; +NALO25TA PO; +NICO-761 TD; +OXYC10TA49 PO; +QUET100T PO; +SIME180C7 PO
[2024-06-21] MEDS ORDERED: HYDR-3980 PO (22:18)
[2024-06-21] MEDS ORDERED: HYDROCODONE/APAP 10/325MG TABLET ONE (22:26)
[2024-06-21] MEDS: HYDROCODONE/APAP 10/325MG TABLET PO ONE (22:30)
[2024-06-21 22:50] LABS: BASOPHILS % (AUTO) 0.2 % (0.0-2.0); HEMATOCRIT 48 % (39-51); HEMOGLOBIN 15.5 g/dL (13.5-17.5); LYMPHOCYTES # (AUTO) 1.9 K/uL (0.8-4.8); LYMPHOCYTES % (AUTO) 17.8 % (20.0-44.0); MEAN CORPUSCULAR HEMOGLOBIN 32 PG (26.0-33.0); MEAN CORPUSCULAR HGB CONC 32 g/dl (31.0-36.0); MEAN CORPUSCULAR VOLUME 98 fL (80-96); MONOCYTES # (AUTO) 0.6 K/uL (0.1-1.30); MONOCYTES % (AUTO) 5.1 % (2.0-12.0); NEUTROPHILS # (AUTO) 8.2 K/uL (1.8-8.9); NEUTROPHILS % (AUTO) 76.9 % (43.0-81.0); PLATELET COUNT (AUTO) 211 K/uL (150-450); RED BLOOD CELL COUNT(AUTO) 4.94 MIL/uL (4.5-6.0); WHITE BLOOD COUNT (AUTO) 10.7 K/uL (4.3-11.0)
[2024-06-21 23:12] LABS: ALANINE AMINOTRANSFERASE 15 U/L (12-78); ALKALINE PHOSPHATASE 97 U/L (46-116); ASPARTATE AMINOTRANSFERASE 31 U/L (15-37); BILIRUBIN,DIRECT 0.1 mg/dL (0.0-0.2); BILIRUBIN,TOTAL 0.7 mg/dL (0.2-1.0); CALCIUM, SERUM 9.4 mg/dL (8.5-10.1); CARBON DIOXIDE 25 mmol/L (21-32); CHLORIDE 95 mmol/L (98-107); GLUCOSE 97 mg/dL (74-106); SODIUM SERUM 137 mmol/L (136-145); TOTAL PROTEIN, SERUM 8.4 g/dL (6.4-8.2); UREA NITROGEN, BLOOD 33 mg/dL (7-18)
[2024-06-21 23:23] LABS: SALICYLATE 22.8 mg/dL (2.8-20.0)
[2024-06-21 23:24] LABS: ACETAMINOPHEN <10 ug/ml (10-30); ALCOHOL, BLOOD < 3 mg/dL (0-10)
[2024-06-21 23:37] LABS: APPEARANCE,URINE CLEAR (CLEAR); BILIRUBIN,URINE 1+ (NEGATIVE); BLOOD, URINE NEGATIVE Ery/uL (NEGATIVE); COLOR,URINE YELLOW (YELLOW); KETONES,URINE 1+ mg/dL (NEGATIVE); LEUKOCYTE ESTERASE ,URINE NEGATIVE (NEGATIVE); NITRITE, URINE NEGATIVE (NEGATIVE); PROTEIN,URINE 1+ mg/dl (NEGATIVE); UGLUCOSE NEGATIVE (NEGATIVE); UROBILINOGEN,URINE 0.2 EU/dL (0.2)
[2024-06-21] MEDS ORDERED: POTASSIUM CHLORIDE 20 MEQ TAB.PRT.SR PO ONE (23:57)
[2024-06-22] MEDS: POTASSIUM CHLORIDE 20 MEQ TAB.PRT.SR PO ONE (00:01)
[2024-06-22 00:03] LABS: AMPHETAMINE, URINE NEGATIVE (NEGATIVE); BARBITURATE, URINE NEGATIVE (NEGATIVE); BENZODIAZEPINE, URINE NEGATIVE (NEGATIVE); CANNABINOID, URINE NEGATIVE (NEGATIVE); COCCAINE, URINE NEGATIVE (NEGATIVE); OPIATE, URINE NEGATIVE (NEGATIVE); PHENCYCLIDINE SCREEN,URINE NEGATIVE (NEGATIVE)
[2024-06-22 00:51] LABS: RBC,URINE NONE SEEN /HPF (0-2); WBC,URINE NONE SEEN /HPF (0-3)
[2024-06-22 00:52] LABS: ADD URINE CULTURE NO; BACTERIA,URINE Rare /HPF (None Seen); MUCUS,URINE Moderate /LPF (None Seen); SQUAMOUS EPITHELIAL CELL,UR None Seen /HPF (None Seen)
[2024-06-22 03:06] VITALS: O2SAT 95
[2024-06-22] MEDS ORDERED: ACETAMINOPHEN 325 MG TABLET PO PRN (03:30)
[2024-06-22] MEDS ORDERED: MAG HYDROX/AL HYDROX/SIMETH 30 ML UDC PO PRN (03:30)
[2024-06-22] MEDS ORDERED: LORAZEPAM 0.5 MG TABLET PO PRN (03:30)
[2024-06-22] MEDS ORDERED: ZOLPIDEM TARTRATE 5 MG TABLET PO PRN (03:30)
[2024-06-22] MEDS: BLOOD SUGAR DIAGNOSTIC 1 EACH STRIP IN ONE (03:36)
[2024-06-22] MEDS ORDERED: ALBUTEROL SULFATE 8 GM HFA.AER.AD IH PRN ×2 (04:00)
[2024-06-22 04:15] VITALS: BP 120/81; TEMP 98.4
[2024-06-22] MEDS: HYDROCODONE/APAP 5/325MG TABLET PO PRN (05:14)
[2024-06-22] MEDS ORDERED: ALBUTEROL FS 2.5 MG/3 ML VIAL.NEB NEB PRN (06:30)
[2024-06-22 08:00] VITALS: BP 96/63; TEMP 98.7; O2SAT 97
[2024-06-22] MEDS ORDERED: TRAMADOL HCL 50 MG TABLET PO PRN (09:00)
[2024-06-22 09:54] LABS: ALBUMIN 3.5 g/dL (3.4-5.0); BILIRUBIN,TOTAL 0.3 mg/dL (0.2-1.0); CREATININE 1.9 mg/dL (0.6-1.3); POTASSIUM 3.4 mmol/L (3.5-5.1); TOTAL PROTEIN, SERUM 7.2 g/dL (6.4-8.2)
[2024-06-22] MEDS: DULOXETINE HCL 30 MG CAPSULE.DR PO SCH (12:14)
[2024-06-22] MEDS: HYDROCODONE/APAP 10/325MG TABLET PO PRN (12:14)
[2024-06-22] MEDS: LORAZEPAM 1 MG TABLET PO PRN (13:48)
[2024-06-22 16:00] VITALS: BP 104/71; TEMP 98.1; O2SAT 99
[2024-06-22 20:12] VITALS: BP 117/72; TEMP 98.2; O2SAT 99
[2024-06-22] MEDS: DIVALPROEX SODIUM 250 MG TABLET.DR PO SCH (21:46)
[2024-06-23 08:00] VITALS: BP 112/79; TEMP 98.7; O2SAT 96
[2024-06-23 16:00] VITALS: BP 111/75; TEMP 97.9; O2SAT 98
[2024-06-23 20:00] VITALS: BP 116/88; TEMP 98.8; O2SAT 97
[2024-06-24 08:00] VITALS: BP 106/75; TEMP 97.7; O2SAT 98
[2024-06-24 15:52] VITALS: TEMP 98.7
[2024-06-24] MEDS: DULOXETINE HCL 30 MG CAPSULE.DR PO SCH (17:40)
[2024-06-24 20:00] VITALS: BP 107/71; TEMP 98.6; O2SAT 95
[2024-06-25 08:00] VITALS: BP 118/82; TEMP 97.6; O2SAT 96
[2024-06-25] MEDS: POTASSIUM CHLORIDE 20 MEQ TAB.PRT.SR PO ONE (10:12)
[2024-06-25] MEDS: GABAPENTIN 300 MG CAPSULE PO SCH (12:18)
[2024-06-25 16:00] VITALS: BP 100/69; TEMP 98.1; O2SAT 96
[2024-06-25 20:00] VITALS: BP 107/79; TEMP 98.2; O2SAT 100
[2024-06-26 08:00] VITALS: BP 100/72; TEMP 98.9; O2SAT 98
[2024-06-26 16:00] VITALS: BP 100/79; TEMP 97.9; O2SAT 97
[2024-06-26 19:49] VITALS: BP 104/70; TEMP 98.8; O2SAT 97
[2024-06-27] MEDS: MAGNESIUM HYDROXIDE 30 ML UDC PO PRN (03:38)
[2024-06-27 08:00] VITALS: BP 104/69; TEMP 97.6; O2SAT 99
[2024-06-27 16:00] VITALS: BP 113/79; TEMP 98.8; O2SAT 96
[2024-06-27 16:30] LABS: CREATININE, URINE 113.3 MG/DL (30.0-125.0); URINE TOTAL PROTEIN 15.5 mg/dL (0-11.9)
[2024-06-27 16:38] LABS: APPEARANCE,URINE CLEAR (CLEAR); BILIRUBIN,URINE NEGATIVE (NEGATIVE); BLOOD, URINE NEGATIVE Ery/uL (NEGATIVE); COLOR,URINE YELLOW (YELLOW); KETONES,URINE NEGATIVE (NEGATIVE); LEUKOCYTE ESTERASE ,URINE NEGATIVE (NEGATIVE); NITRITE, URINE NEGATIVE (NEGATIVE); PROTEIN,URINE NEGATIVE (NEGATIVE); UGLUCOSE NEGATIVE (NEGATIVE); UROBILINOGEN,URINE 0.2 EU/dL (0.2)
[2024-06-27 17:43] LABS: EOSINOPHIL,URINE None Seen
[2024-06-27 20:23] VITALS: BP 108/80; TEMP 98.2; O2SAT 97
[2024-06-27] MEDS: ZOLPIDEM TARTRATE 5 MG TABLET PO PRN (21:48)
[2024-06-28 06:57] LABS: BASOPHILS % (AUTO) 0.9 % (0.0-2.0); EOSINOPHILS # (AUTO) 0.2 K/uL (0.0-0.7); EOSINOPHILS % (AUTO) 4.1 % (0.0-6.0); HEMATOCRIT 39 % (39-51); LYMPHOCYTES # (AUTO) 1.5 K/uL (0.8-4.8); LYMPHOCYTES % (AUTO) 31.8 % (20.0-44.0); MEAN CORPUSCULAR HEMOGLOBIN 33 PG (26.0-33.0); MEAN CORPUSCULAR HGB CONC 34 g/dl (31.0-36.0); MEAN CORPUSCULAR VOLUME 96 fL (80-96); MONOCYTES # (AUTO) 0.5 K/uL (0.1-1.30); MONOCYTES % (AUTO) 10.1 % (2.0-12.0); NEUTROPHILS # (AUTO) 2.5 K/uL (1.8-8.9); NEUTROPHILS % (AUTO) 53.1 % (43.0-81.0); PLATELET COUNT (AUTO) 243 K/uL (150-450); RED BLOOD CELL COUNT(AUTO) 4.01 MIL/uL (4.5-6.0); RED CELL DISTRIBUTION WIDTH 15.6 % (11.5-15.0); WHITE BLOOD COUNT (AUTO) 4.7 K/uL (4.3-11.0)
[2024-06-28 07:21] LABS: ALBUMIN 3.1 g/dL (3.4-5.0); BILIRUBIN,TOTAL 0.3 mg/dL (0.2-1.0); CALCIUM, SERUM 9.4 mg/dL (8.5-10.1); CREATININE 1.1 mg/dL (0.6-1.3); MAGNESIUM 2.2 mg/dL (1.8-2.4); PHOSPHORUS 3.1 mg/dL (2.5-4.9); POTASSIUM 4.1 mmol/L (3.5-5.1); TOTAL PROTEIN, SERUM 6.6 g/dL (6.4-8.2)
[2024-06-28 08:00] VITALS: BP 122/96; TEMP 97.8; O2SAT 100
[2024-06-28 16:00] VITALS: BP 111/80; TEMP 97.9; O2SAT 99
[2024-06-28 20:46] VITALS: BP 102/68; TEMP 98; O2SAT 96
[2024-06-29 08:00] VITALS: BP 113/77; TEMP 98.1; O2SAT 97
[2024-06-29 16:00] VITALS: BP 121/81; TEMP 98.2; O2SAT 97
[2024-06-29 20:32] VITALS: BP 125/65; TEMP 98; O2SAT 96
[2024-06-30 02:11] LABS: PTH, INTACT 19 pg/mL (15-65)
[2024-06-30 05:07] LABS: *SPE A/G RATIO 1.1 (0.7-1.7); *SPE ALBUMIN 2.9 g/dL (2.9-4.4); *SPE ALPHA-1-GLOBULIN 0.2 g/dL (0.0-0.4); *SPE ALPHA-2-GLOBULIN 0.7 g/dL (0.4-1.0); *SPE BETA GLOBULIN 1.1 g/dL (0.7-1.3); *SPE GLOBULIN, TOTAL 2.7 g/dL (2.2-3.9); *SPE M-SPIKE 0.1 g/dL (Not Observed); *SPE PROTEIN TOTAL 5.6 g/dL (6.0-8.5); *SPEGAMMA GLOBULIN 0.7 g/dL (0.4-1.8)
[2024-06-30 08:00] VITALS: BP 112/80; TEMP 97.8; O2SAT 96
[2024-06-30] MEDS: DIVALPROEX SODIUM 250 MG TABLET.DR PO SCH (13:22)
[2024-06-30 16:00] VITALS: BP 123/78; TEMP 98; O2SAT 97
[2024-06-30 20:00] VITALS: BP 108/69; TEMP 97.9; O2SAT 96
[2024-07-01 08:00] VITALS: BP 107/78; TEMP 98.6; O2SAT 99
[2024-07-01 16:00] VITALS: BP 112/85; TEMP 98.6; O2SAT 99
[2024-07-01 20:00] VITALS: BP 98/72; TEMP 98.3; O2SAT 98
[2024-07-02 08:00] VITALS: BP 109/70; TEMP 98.2; O2SAT 98
== END 2024-07-02 13:10 | disposition home or self-care (01) | DRG 885 ==
LOC: ER 21:52 → GPS 06-22 03:05
PROVIDERS: ADMIT Psychiatry & Neurology Psychiatry; ATTEND Internal Medicine
DX: F33.3 Major depressive disorder, recurrent, severe with psychotic symptoms (principal); N17.9 Acute kidney failure, unspecified; N18.9 Chronic kidney disease, unspecified; E44.1 Mild protein-calorie malnutrition; F29 Unspecified psychosis not due to a substance or known physiological condition; E11.9 Type 2 diabetes mellitus without complications; E11.22 Type 2 diabetes mellitus with diabetic chronic kidney disease; E87.6 Hypokalemia; E88.09 Other disorders of plasma-protein metabolism, not elsewhere classified; G89.4 Chronic pain syndrome; F41.9 Anxiety disorder, unspecified; M41.9 Scoliosis, unspecified; Z79.899 Other long term (current) drug therapy; Z20.822 Contact with and (suspected) exposure to COVID-19; Z68.24 Body mass index [BMI] 24.0-24.9, adult; I12.9 Hypertensive chronic kidney disease with stage 1 through stage 4 chronic kidney disease, or unspecified chronic kidney disease; Z79.891 Long term (current) use of opiate analgesic; F39 Unspecified mood [affective] disorder
CPT/HCPCS: 36415; 76770-TC; 80048-TC; 80053-TC; 80061-TC; 80076-TC; 80164-TC; 81001; 82550-TC; 82570-TC; 82962-TC; 83735-TC; 83970; 84100-TC; 84155; 84165; 84300-TC; 85025-TC; 87081-TC; G0480

== ENCOUNTER 2024-07-06 08:14 | Inpatient (IN) | payer MEDICARE, OTHER ==
[~2024-07-06] VITALS: Ht 190.5 cm; Wt 68.0 kg
[~2024-07-06 08:14] MED LIST changes: -ALBU18HF2 INH; -ALBU8.5H8 IH; -AMLO-212 PO; -AMLO5TAB4 PO; -DOCU100C58 PO; -HYDR-3976 PO; -IBUP-1955 PO; -IPRA4AER IH; -IPRA4AER INH; -LINA290C PO; -METH-647 PO; -NALO25TA PO; -NICO-761 TD; -OXYC10TA49 PO; -SIME180C47 PO; -SIME180C7 PO
[2024-07-06 08:49] LABS: BASOPHILS % (AUTO) 0.4 % (0.0-2.0); EOSINOPHILS % (AUTO) 0.5 % (0.0-6.0); HEMATOCRIT 41 % (39-51); HEMOGLOBIN 13.2 g/dL (13.5-17.5); LYMPHOCYTES # (AUTO) 0.8 K/uL (0.8-4.8); LYMPHOCYTES % (AUTO) 10.1 % (20.0-44.0); MEAN CORPUSCULAR HEMOGLOBIN 32 PG (26.0-33.0); MEAN CORPUSCULAR HGB CONC 32 g/dl (31.0-36.0); MEAN CORPUSCULAR VOLUME 97 fL (80-96); MONOCYTES # (AUTO) 0.5 K/uL (0.1-1.30); MONOCYTES % (AUTO) 5.9 % (2.0-12.0); NEUTROPHILS % (AUTO) 83.1 % (43.0-81.0); PLATELET COUNT (AUTO) 213 K/uL (150-450); RED BLOOD CELL COUNT(AUTO) 4.17 MIL/uL (4.5-6.0); RED CELL DISTRIBUTION WIDTH 15.4 % (11.5-15.0); WHITE BLOOD COUNT (AUTO) 8.4 K/uL (4.3-11.0)
[2024-07-06] MEDS: IV NS 0.9% 1,000 ML BAG IV ONE (09:00)
[2024-07-06 09:04] LABS: CREATININE 1.9 mg/dL (0.6-1.3); POTASSIUM 4.1 mmol/L (3.5-5.1)
[2024-07-06 09:10] LABS: ALBUMIN 4.1 g/dL (3.4-5.0); BILIRUBIN,DIRECT 0.2 mg/dL (0.0-0.2); BILIRUBIN,TOTAL 0.6 mg/dL (0.2-1.0); TOTAL PROTEIN, SERUM 8.7 g/dL (6.4-8.2)
[2024-07-06] MEDS ORDERED: CT SWABBABLE VALVE TRANS SET 1 EA INFUS.SET MC ONE (09:23)
[2024-07-06] MEDS ORDERED: IV NS 0.9% 250 ML IV ONE (09:23)
[2024-07-06] MEDS ORDERED: IOHEXOL-300 100 ML VIAL IV ONE (09:23)
[2024-07-06 09:58] LABS: APPEARANCE,URINE CLEAR (CLEAR); BILIRUBIN,URINE NEGATIVE (NEGATIVE); BLOOD, URINE NEGATIVE Ery/uL (NEGATIVE); COLOR,URINE YELLOW (YELLOW); KETONES,URINE 1+ mg/dL (NEGATIVE); LEUKOCYTE ESTERASE ,URINE NEGATIVE (NEGATIVE); NITRITE, URINE NEGATIVE (NEGATIVE); PH,URINE 6.5 (5.0-8.0); PROTEIN,URINE TRACE mg/dl (NEGATIVE); UGLUCOSE NEGATIVE (NEGATIVE); UROBILINOGEN,URINE 0.2 EU/dL (0.2)
[2024-07-06 10:04] LABS: ADD URINE CULTURE NO; BACTERIA,URINE Few /HPF (None Seen); RBC,URINE 0-2 /HPF (0-2); SQUAMOUS EPITHELIAL CELL,UR 0-2 /HPF (None Seen); WBC,URINE 0-2 /HPF (0-3)
[2024-07-06] MEDS ORDERED: DULO30CA52 PO (11:57)
[2024-07-06] MEDS ORDERED: GABA300C PO (11:57)
[2024-07-06 14:15] VITALS: BP 105/72; TEMP 98.5; O2SAT 96
[2024-07-06] MEDS ORDERED: Z GUARD REMEDY 4 OZ OINT TP PRN (15:00)
[2024-07-06] MEDS ORDERED: MAGNESIUM HYDROXIDE 30 ML UDC PO PRN (15:00)
[2024-07-06] MEDS ORDERED: ONDANSETRON HCL/PF 4 MG/2 ML VIAL IVP PRN (15:00)
[2024-07-06] MEDS ORDERED: MAG HYDROX/AL HYDROX/SIMETH 30 ML UDC PO PRN (15:00)
[2024-07-06] MEDS: IV NS 0.9% 1,000 ML IV PRN (15:32)
[2024-07-06] MEDS: ENOXAPARIN SODIUM 40 MG/0.4 ML DISP.SYRIN SQ SCH (15:34)
[2024-07-06 16:00] VITALS: BP 137/86; TEMP 98.2; O2SAT 98
[2024-07-06] MEDS: GABAPENTIN 300 MG CAPSULE PO SCH (16:16)
[2024-07-06] MEDS: DULOXETINE HCL 30 MG CAPSULE.DR PO SCH (16:17)
[2024-07-06 20:00] VITALS: BP 106/73; TEMP 97.3; O2SAT 96
[2024-07-07] MEDS: ACETAMINOPHEN 325 MG TABLET PO PRN (00:22)
[2024-07-07 06:47] LABS: BASOPHILS % (AUTO) 0.7 % (0.0-2.0); EOSINOPHILS # (AUTO) 0.1 K/uL (0.0-0.7); EOSINOPHILS % (AUTO) 1.8 % (0.0-6.0); HEMATOCRIT 34 % (39-51); HEMOGLOBIN 11.4 g/dL (13.5-17.5); LYMPHOCYTES # (AUTO) 1.5 K/uL (0.8-4.8); LYMPHOCYTES % (AUTO) 33.9 % (20.0-44.0); MEAN CORPUSCULAR HEMOGLOBIN 32 PG (26.0-33.0); MEAN CORPUSCULAR HGB CONC 34 g/dl (31.0-36.0); MEAN CORPUSCULAR VOLUME 97 fL (80-96); MONOCYTES # (AUTO) 0.5 K/uL (0.1-1.30); MONOCYTES % (AUTO) 11.5 % (2.0-12.0); NEUTROPHILS # (AUTO) 2.4 K/uL (1.8-8.9); NEUTROPHILS % (AUTO) 52.1 % (43.0-81.0); PLATELET COUNT (AUTO) 184 K/uL (150-450); RED BLOOD CELL COUNT(AUTO) 3.53 MIL/uL (4.5-6.0); RED CELL DISTRIBUTION WIDTH 15.4 % (11.5-15.0); WHITE BLOOD COUNT (AUTO) 4.6 K/uL (4.3-11.0)
[2024-07-07 07:01] LABS: CALCIUM, SERUM 8.6 mg/dL (8.5-10.1); CREATININE 1.6 mg/dL (0.6-1.3); MAGNESIUM 2.4 mg/dL (1.8-2.4); PHOSPHORUS 3.3 mg/dL (2.5-4.9); POTASSIUM 3.9 mmol/L (3.5-5.1)
[2024-07-07 07:30] VITALS: BP 118/80; TEMP 98.6; O2SAT 94
[2024-07-07 08:00] VITALS: BP 118/80; TEMP 98.6; O2SAT 94
[2024-07-07] MEDS: QUETIAPINE FUMARATE 100 MG TABLET PO SCH (09:25)
[2024-07-07] MEDS: TRAMADOL HCL 50 MG TABLET PO PRN (10:54)
[2024-07-07 16:00] VITALS: BP 119/77; TEMP 97.7; O2SAT 96
[2024-07-07 20:05] VITALS: BP 117/82; TEMP 98.4; O2SAT 96
[2024-07-08 07:00] VITALS: BP 115/76; TEMP 98.4; O2SAT 96
[2024-07-08 07:13] LABS: BASOPHILS % (AUTO) 0.9 % (0.0-2.0); EOSINOPHILS # (AUTO) 0.1 K/uL (0.0-0.7); EOSINOPHILS % (AUTO) 1.9 % (0.0-6.0); HEMATOCRIT 36 % (39-51); HEMOGLOBIN 11.7 g/dL (13.5-17.5); LYMPHOCYTES # (AUTO) 1.7 K/uL (0.8-4.8); LYMPHOCYTES % (AUTO) 33.5 % (20.0-44.0); MEAN CORPUSCULAR HEMOGLOBIN 31 PG (26.0-33.0); MEAN CORPUSCULAR HGB CONC 32 g/dl (31.0-36.0); MEAN CORPUSCULAR VOLUME 97 fL (80-96); MONOCYTES # (AUTO) 0.5 K/uL (0.1-1.30); MONOCYTES % (AUTO) 9.7 % (2.0-12.0); NEUTROPHILS # (AUTO) 2.7 K/uL (1.8-8.9); PLATELET COUNT (AUTO) 166 K/uL (150-450); RED BLOOD CELL COUNT(AUTO) 3.73 MIL/uL (4.5-6.0)
[2024-07-08 08:41] LABS: CALCIUM, SERUM 8.7 mg/dL (8.5-10.1); CREATININE 1.4 mg/dL (0.6-1.3); PHOSPHORUS 2.4 mg/dL (2.5-4.9); POTASSIUM 3.7 mmol/L (3.5-5.1)
[2024-07-08] MEDS ORDERED: TRAM50TA2 PO (09:51)
[2024-07-08 16:00] VITALS: BP 136/94; TEMP 98.4; O2SAT 96
[2024-07-08] MEDS: K PHOS NEUTRAL 250 MG TABLET PO ONE (16:02)
== END 2024-07-08 18:45 | DRG 551 ==
LOC: ER 08:17 → MED 14:03
PROVIDERS: ADMIT Internal Medicine; ATTEND Nurse Practitioner Acute Care
DX: M51.16 Intervertebral disc disorders with radiculopathy, lumbar region (principal); G93.41 Metabolic encephalopathy; N17.0 Acute kidney failure with tubular necrosis; F03.93 Unspecified dementia, unspecified severity, with mood disturbance; M54.50 Low back pain, unspecified; G62.9 Polyneuropathy, unspecified; R29.6 Repeated falls; M47.26 Other spondylosis with radiculopathy, lumbar region; M19.90 Unspecified osteoarthritis, unspecified site; F32.9 Major depressive disorder, single episode, unspecified; G89.29 Other chronic pain; M41.9 Scoliosis, unspecified; Z79.899 Other long term (current) drug therapy; I12.9 Hypertensive chronic kidney disease with stage 1 through stage 4 chronic kidney disease, or unspecified chronic kidney disease; N18.9 Chronic kidney disease, unspecified; R26.89 Other abnormalities of gait and mobility; F29 Unspecified psychosis not due to a substance or known physiological condition; W19.XXXA Unspecified fall, initial encounter; Y93.9 Activity, unspecified; Y92.009 Unspecified place in unspecified non-institutional (private) residence as the place of occurrence of the external cause
CPT/HCPCS: 36415; 70450-TC; 71260-TC; 80048-TC; 80076-TC; 81001; 83735-TC; 84100-TC; 85025-TC; 97110-TC; 97116-TC; 97530-TC; A4223; G0378; J1650; J7030; J7050; Q9967

== ENCOUNTER 2024-09-01 11:06 | Emergency (ER) | payer MEDICARE, OTHER ==
[~2024-09-01] VITALS: Ht 190.5 cm; Wt 72.6 kg
[~2024-09-01 11:06] MED LIST changes: +DULO30CA52 PO; +GABA300C PO; -HYDR-4303 PO; +TRAM50TA2 PO
[2024-09-01 11:14] VITALS: TEMP 98.3
[2024-09-01 11:20] VITALS: BP 139/96; O2SAT 98
== END 2024-09-01 13:01 | disposition home or self-care (01) ==
LOC: ER 11:13
DX: G89.4 Chronic pain syndrome (principal); M54.50 Low back pain, unspecified; M41.9 Scoliosis, unspecified; I10 Essential (primary) hypertension; Z79.899 Other long term (current) drug therapy
CPT/HCPCS: 72131-TC

== ENCOUNTER 2024-09-04 11:08 | Inpatient (IN) | payer MEDICARE, OTHER ==
[~2024-09-04] VITALS: Ht 190.5 cm; Wt 73.5 kg
[2024-09-04] MEDS ORDERED: LIDOCAINE 5% (PATCH) 1 EA PATCH TP ONE (11:54)
[2024-09-04] MEDS ORDERED: IBUPROFEN 600 MG TABLET ONE (11:55)
[2024-09-04] MEDS ORDERED: HYDROCODONE/APAP 5/325MG TABLET ONE (11:55)
[2024-09-04] MEDS: LIDOCAINE 5% (PATCH) 1 EA PATCH TP STA (12:01)
[2024-09-04] MEDS: IBUPROFEN 600 MG TABLET PO ONE (12:01)
[2024-09-04] MEDS: HYDROCODONE/APAP 5/325MG TABLET PO ONE ×2 (12:02→22:38)
[2024-09-04 12:16] LABS: EOSINOPHILS # (AUTO) 0.4 K/uL (0.0-0.7); HEMATOCRIT 47 % (39-51); HEMOGLOBIN 15.5 g/dL (13.5-17.5); LYMPHOCYTES # (AUTO) 0.6 K/uL (0.8-4.8); LYMPHOCYTES % (AUTO) 9.9 % (20.0-44.0); MEAN CORPUSCULAR HEMOGLOBIN 31 PG (26.0-33.0); MEAN CORPUSCULAR HGB CONC 33 g/dl (31.0-36.0); MEAN CORPUSCULAR VOLUME 94 fL (80-96); MONOCYTES # (AUTO) 0.2 K/uL (0.1-1.30); MONOCYTES % (AUTO) 3.8 % (2.0-12.0); NEUTROPHILS # (AUTO) 4.8 K/uL (1.8-8.9); NEUTROPHILS % (AUTO) 80.3 % (43.0-81.0); PLATELET COUNT (AUTO) 276 K/uL (150-450); RED BLOOD CELL COUNT(AUTO) 4.99 MIL/uL (4.5-6.0); RED CELL DISTRIBUTION WIDTH 14.5 % (11.5-15.0)
[2024-09-04 12:25] LABS: APPEARANCE,URINE CLEAR (CLEAR); BILIRUBIN,URINE 1+ (NEGATIVE); BLOOD, URINE NEGATIVE Ery/uL (NEGATIVE); COLOR,URINE YELLOW (YELLOW); KETONES,URINE 1+ mg/dL (NEGATIVE); LEUKOCYTE ESTERASE ,URINE NEGATIVE (NEGATIVE); NITRITE, URINE NEGATIVE (NEGATIVE); PROTEIN,URINE 1+ mg/dl (NEGATIVE); UGLUCOSE NEGATIVE (NEGATIVE); UROBILINOGEN,URINE 0.2 EU/dL (0.2)
[2024-09-04 12:37] LABS: CALCIUM, SERUM 10.8 mg/dL (8.5-10.1); CARBON DIOXIDE 32 mmol/L (21-32); CHLORIDE 100 mmol/L (98-107); CREATININE 1.4 mg/dL (0.6-1.3); GLUCOSE 105 mg/dL (74-106); POTASSIUM 3.7 mmol/L (3.5-5.1); SODIUM SERUM 142 mmol/L (136-145); UREA NITROGEN, BLOOD 21 mg/dL (7-18)
[2024-09-04 12:43] LABS: ALANINE AMINOTRANSFERASE 12 U/L (12-78); ALBUMIN 4.3 g/dL (3.4-5.0); ALCOHOL, BLOOD < 3 mg/dL (0-10); ALKALINE PHOSPHATASE 136 U/L (46-116); ASPARTATE AMINOTRANSFERASE 15 U/L (15-37); BILIRUBIN,DIRECT 0.2 mg/dL (0.0-0.2); BILIRUBIN,TOTAL 0.7 mg/dL (0.2-1.0); SALICYLATE 3.2 mg/dL (2.8-20.0); TOTAL PROTEIN, SERUM 9.3 g/dL (6.4-8.2)
[2024-09-04 12:44] LABS: ACETAMINOPHEN <10 ug/ml (10-30)
[2024-09-04 12:49] LABS: ADD URINE CULTURE NO; BACTERIA,URINE None seen /HPF (None Seen); RBC,URINE 0-2 /HPF (0-2); SQUAMOUS EPITHELIAL CELL,UR 0-2 /HPF (None Seen); WBC,URINE 0-2 /HPF (0-3)
[2024-09-04 13:16] LABS: AMPHETAMINE, URINE NEGATIVE (NEGATIVE); BARBITURATE, URINE NEGATIVE (NEGATIVE); BENZODIAZEPINE, URINE NEGATIVE (NEGATIVE); COCCAINE, URINE NEGATIVE (NEGATIVE); OPIATE, URINE NEGATIVE (NEGATIVE); PHENCYCLIDINE SCREEN,URINE NEGATIVE (NEGATIVE)
[2024-09-04 13:20] LABS: CANNABINOID, URINE POSITIVE (NEGATIVE)
[2024-09-04] MEDS ORDERED: HYDR-3972 PO (20:18)
[2024-09-04] MEDS ORDERED: LORAZEPAM 1 MG TABLET PO PRN (20:30)
[2024-09-04] MEDS ORDERED: ZOLPIDEM TARTRATE 5 MG TABLET PO PRN (20:30)
[2024-09-04] MEDS: ACETAMINOPHEN 325 MG TABLET PO PRN (21:12)
[2024-09-04 21:43] VITALS: BP 109/72; TEMP 98.4; O2SAT 98
[2024-09-04] MEDS: BLOOD SUGAR DIAGNOSTIC 1 EACH STRIP IN ONE (22:07)
[2024-09-04 23:15] VITALS: BP 109/72; TEMP 98.4; O2SAT 98
[2024-09-05] MEDS: HYDROCODONE/APAP 5/325MG TABLET PO PRN (05:04)
[2024-09-05 08:00] VITALS: BP 110/83; TEMP 98.6; O2SAT 96
[2024-09-05] MEDS: TRAMADOL HCL 50 MG TABLET PO SCH (08:18)
[2024-09-05 08:28] LABS: BASOPHILS # (AUTO) 0.1 K/uL (0.0-0.2); BASOPHILS % (AUTO) 1.2 % (0.0-2.0); EOSINOPHILS # (AUTO) 0.1 K/uL (0.0-0.7); EOSINOPHILS % (AUTO) 1.2 % (0.0-6.0); HEMATOCRIT 43 % (39-51); HEMOGLOBIN 13.9 g/dL (13.5-17.5); LYMPHOCYTES % (AUTO) 39.2 % (20.0-44.0); MEAN CORPUSCULAR HEMOGLOBIN 31 PG (26.0-33.0); MEAN CORPUSCULAR HGB CONC 33 g/dl (31.0-36.0); MEAN CORPUSCULAR VOLUME 94 fL (80-96); MONOCYTES # (AUTO) 0.6 K/uL (0.1-1.30); NEUTROPHILS # (AUTO) 2.4 K/uL (1.8-8.9); NEUTROPHILS % (AUTO) 46.4 % (43.0-81.0); PLATELET COUNT (AUTO) 241 K/uL (150-450); RED BLOOD CELL COUNT(AUTO) 4.53 MIL/uL (4.5-6.0); RED CELL DISTRIBUTION WIDTH 14.5 % (11.5-15.0); WHITE BLOOD COUNT (AUTO) 5.1 K/uL (4.3-11.0)
[2024-09-05 08:41] LABS: CALCIUM, SERUM 9.5 mg/dL (8.5-10.1); CREATININE 1.2 mg/dL (0.6-1.3); POTASSIUM 4.1 mmol/L (3.5-5.1)
[2024-09-05] MEDS: GABAPENTIN 300 MG CAPSULE PO SCH (08:50)
[2024-09-05] MEDS: MAGNESIUM HYDROXIDE 30 ML UDC PO PRN (08:50)
[2024-09-05] MEDS ORDERED: DULOXETINE HCL 30 MG CAPSULE.DR PO SCH (09:00)
[2024-09-05 10:23] LABS: THYROID STIMULATING HORMONE 1.18 uIU/mL (0.358-3.74)
[2024-09-05 16:00] VITALS: BP 107/73; TEMP 98.8; O2SAT 100
[2024-09-05] MEDS: MAG HYDROX/AL HYDROX/SIMETH 30 ML UDC PO PRN (20:06)
[2024-09-05 21:28] VITALS: BP 104/72; TEMP 98.1; O2SAT 97
[2024-09-05] MEDS: risperiDONE 0.25 MG TABLET PO SCH (22:10)
[2024-09-05] MEDS: LORAZEPAM 1 MG TABLET PO PRN (22:19)
[2024-09-06] MEDS ORDERED: PHENYLEPHRINE/SHK LV/MO/PET,WH 30 GM TUBE RC PRN (01:30)
[2024-09-06 08:00] VITALS: BP 110/75; TEMP 98.2; O2SAT 97
[2024-09-06] MEDS: NICOTINE PATCH (14MG) 14 MG PATCH.TD24 TD SCH (09:01)
[2024-09-06] MEDS: SENNOSIDES 8.6 MG TABLET PO SCH (09:02)
[2024-09-06 16:00] VITALS: BP 118/79; TEMP 98.6; O2SAT 100
[2024-09-06 21:10] VITALS: BP 128/81; TEMP 98.6; O2SAT 100
[2024-09-06] MEDS: risperiDONE 0.25 MG TABLET PO SCH (21:14)
[2024-09-07 08:00] VITALS: BP 121/95; TEMP 98.1; O2SAT 97
[2024-09-07 16:00] VITALS: BP 114/85; TEMP 98.6; O2SAT 97
[2024-09-07 19:51] VITALS: BP 132/96; TEMP 98.5; O2SAT 100
[2024-09-07] MEDS ORDERED: LORAZEPAM 1 MG TABLET PO PRN (20:30)
[2024-09-07] MEDS: DIVALPROEX SODIUM 125 MG TABLET.DR PO SCH (20:32)
[2024-09-07] MEDS: ZOLPIDEM TARTRATE 5 MG TABLET PO PRN (21:56)
[2024-09-08 08:00] VITALS: BP 117/81; TEMP 97.8; O2SAT 98
[2024-09-08 16:00] VITALS: BP 136/89; TEMP 98.4; O2SAT 98
[2024-09-08 20:00] VITALS: BP 124/94; TEMP 98.3; O2SAT 99
[2024-09-08] MEDS: DIVALPROEX SODIUM 125 MG TABLET.DR PO SCH (21:00)
[2024-09-09 08:00] VITALS: BP 113/85; TEMP 98.7; O2SAT 99
[2024-09-09] MEDS: GABAPENTIN 100 MG CAPSULE PO SCH (09:00)
[2024-09-09 16:00] VITALS: BP 107/77; TEMP 97.7; O2SAT 98
[2024-09-09 19:51] VITALS: BP 108/71; TEMP 98.2; O2SAT 98
[2024-09-10 08:00] VITALS: BP 128/86; TEMP 97.9; O2SAT 96
[2024-09-10 16:00] VITALS: BP 111/77; TEMP 97.5; O2SAT 95
[2024-09-10 20:00] VITALS: BP 119/84; TEMP 98.6; O2SAT 98
[2024-09-10] MEDS: risperiDONE 1 MG TABLET PO SCH (20:32)
[2024-09-11 08:00] VITALS: BP 100/74; TEMP 97.8; O2SAT 97
[2024-09-11 16:00] VITALS: BP 113/84; TEMP 98.2; O2SAT 99
[2024-09-11 20:00] VITALS: BP 114/73; TEMP 98.2; O2SAT 100
[2024-09-12 08:00] VITALS: BP 95/68; TEMP 97.8; O2SAT 97
[2024-09-12 16:00] VITALS: BP 101/73; TEMP 98.9; O2SAT 96
[2024-09-12 21:26] VITALS: BP 107/77; TEMP 98; O2SAT 98
[2024-09-13 08:00] VITALS: BP 109/81; TEMP 98; O2SAT 100
[2024-09-13 16:00] VITALS: BP 108/70; TEMP 98.1; O2SAT 100
[2024-09-13 20:32] VITALS: BP 112/91; TEMP 99.1; O2SAT 100
[2024-09-14 08:00] VITALS: BP 100/77; TEMP 98.1; O2SAT 97
[2024-09-14 15:46] VITALS: BP 100/76; TEMP 98.7; O2SAT 98
[2024-09-14 20:00] VITALS: BP 102/73; TEMP 98.1; O2SAT 98
[2024-09-14] MEDS: DIVALPROEX SODIUM 125 MG TABLET.DR PO SCH (21:33)
[2024-09-15 08:00] VITALS: BP 102/74; TEMP 97.8; O2SAT 98
[2024-09-15 16:00] VITALS: BP 105/67; TEMP 98.1; O2SAT 100
[2024-09-15 20:00] VITALS: BP 111/73; TEMP 97.7; O2SAT 99
[2024-09-15 20:16] VITALS: BP 111/73; TEMP 97.7; O2SAT 99
[2024-09-16 08:00] VITALS: BP 100/68; TEMP 97.8; O2SAT 97
[2024-09-16 16:30] VITALS: BP 141/90; TEMP 98.7; O2SAT 98
[2024-09-16 20:00] VITALS: BP 115/79; TEMP 98.6; O2SAT 98
[2024-09-17 08:00] VITALS: BP 122/92; TEMP 97.7; O2SAT 93
[2024-09-17 16:00] VITALS: BP 109/86; TEMP 97.4; O2SAT 95
[2024-09-17 20:00] VITALS: BP 136/93; TEMP 97.7; O2SAT 98
[2024-09-18 08:00] VITALS: BP 135/99; TEMP 97.8; O2SAT 97
[2024-09-18 16:00] VITALS: BP 116/86; TEMP 98.1; O2SAT 98
== END 2024-09-18 17:00 | disposition home or self-care (01) | DRG 885 ==
LOC: ER 11:23 → GPS 19:37
PROVIDERS: ADMIT Psychiatry & Neurology Psychiatry; ATTEND Internal Medicine
DX: F39 Unspecified mood [affective] disorder (principal); N18.9 Chronic kidney disease, unspecified; N17.9 Acute kidney failure, unspecified; G93.41 Metabolic encephalopathy; F03.93 Unspecified dementia, unspecified severity, with mood disturbance; R45.851 Suicidal ideations; F15.20 Other stimulant dependence, uncomplicated; F29 Unspecified psychosis not due to a substance or known physiological condition; I12.9 Hypertensive chronic kidney disease with stage 1 through stage 4 chronic kidney disease, or unspecified chronic kidney disease; M41.9 Scoliosis, unspecified; G89.29 Other chronic pain; Z79.899 Other long term (current) drug therapy; R29.6 Repeated falls; M89.8X9 Other specified disorders of bone, unspecified site; M54.32 Sciatica, left side; M54.31 Sciatica, right side; M51.369 Other intervertebral disc degeneration, lumbar region without mention of lumbar back pain or lower extremity pain; G62.9 Polyneuropathy, unspecified; F32.9 Major depressive disorder, single episode, unspecified; R26.81 Unsteadiness on feet; F20.9 Schizophrenia, unspecified; F17.210 Nicotine dependence, cigarettes, uncomplicated
CPT/HCPCS: 36415; 80048-TC; 80061-TC; 80076-TC; 80164-TC; 81001; 84443-TC; 85025-TC; 87081-TC; 97116-TC; 97530-TC; G0480

== ENCOUNTER 2024-10-04 09:45 | Emergency (ER) | payer MEDICARE, OTHER ==
[~2024-10-04] VITALS: Ht 190.5 cm; Wt 78.5 kg
[~2024-10-04 09:45] MED LIST changes: +HYDR-3972 PO
[2024-10-04 09:55] VITALS: BP 118/72; TEMP 98.2
[2024-10-04 10:24] VITALS: O2SAT 98
== END 2024-10-04 10:25 | disposition home or self-care (01) ==
LOC: ER 09:45
DX: M54.9 Dorsalgia, unspecified (principal); G89.29 Other chronic pain; F20.9 Schizophrenia, unspecified; I10 Essential (primary) hypertension; F19.10 Other psychoactive substance abuse, uncomplicated; Z76.0 Encounter for issue of repeat prescription; Z79.899 Other long term (current) drug therapy; Z86.79 Personal history of other diseases of the circulatory system; Z60.2 Problems related to living alone

== ENCOUNTER 2024-11-08 12:34 | Emergency (ER) | payer MEDICARE, OTHER ==
[~2024-11-08] VITALS: Ht 182.9 cm; Wt 73.9 kg
[2024-11-08] MEDS ORDERED: HYDROCODONE/APAP 5/325MG TABLET ONE (13:07)
[2024-11-08 13:11] VITALS: BP 119/79; TEMP 98.7; O2SAT 98
[2024-11-08 13:19] LABS: BASOPHILS % (AUTO) 0.8 % (0.0-2.0); EOSINOPHILS # (AUTO) 0.1 K/uL (0.0-0.7); EOSINOPHILS % (AUTO) 0.9 % (0.0-6.0); HEMATOCRIT 41 % (39-51); HEMOGLOBIN 13.6 g/dL (13.5-17.5); LYMPHOCYTES # (AUTO) 1.8 K/uL (0.8-4.8); LYMPHOCYTES % (AUTO) 32.1 % (20.0-44.0); MEAN CORPUSCULAR HEMOGLOBIN 31 PG (26.0-33.0); MEAN CORPUSCULAR HGB CONC 33 g/dl (31.0-36.0); MEAN CORPUSCULAR VOLUME 92 fL (80-96); MONOCYTES # (AUTO) 0.5 K/uL (0.1-1.30); MONOCYTES % (AUTO) 8.7 % (2.0-12.0); NEUTROPHILS # (AUTO) 3.2 K/uL (1.8-8.9); NEUTROPHILS % (AUTO) 57.5 % (43.0-81.0); PLATELET COUNT (AUTO) 281 K/uL (150-450); RED BLOOD CELL COUNT(AUTO) 4.45 MIL/uL (4.5-6.0); RED CELL DISTRIBUTION WIDTH 14.3 % (11.5-15.0); WHITE BLOOD COUNT (AUTO) 5.6 K/uL (4.3-11.0)
[2024-11-08] MEDS: METHOCARBAMOL (750MG) 750 MG TABLET PO SCH (13:19)
[2024-11-08] MEDS: HYDROCODONE/APAP 5/325MG TABLET PO ONE (13:19)
[2024-11-08 13:26] LABS: APPEARANCE,URINE CLEAR (CLEAR); BILIRUBIN,URINE NEGATIVE (NEGATIVE); BLOOD, URINE NEGATIVE Ery/uL (NEGATIVE); COLOR,URINE YELLOW (YELLOW); KETONES,URINE TRACE mg/dL (NEGATIVE); LEUKOCYTE ESTERASE ,URINE NEGATIVE (NEGATIVE); NITRITE, URINE NEGATIVE (NEGATIVE); PROTEIN,URINE TRACE mg/dl (NEGATIVE); UGLUCOSE NEGATIVE (NEGATIVE); UROBILINOGEN,URINE 0.2 EU/dL (0.2)
[2024-11-08 13:33] LABS: ADD URINE CULTURE NO; BACTERIA,URINE Few /HPF (None Seen); RBC,URINE 0-2 /HPF (0-2); SPERM,URINE Many /HPF (None Seen); SQUAMOUS EPITHELIAL CELL,UR 0-2 /HPF (None Seen); WBC,URINE 0-2 /HPF (0-3)
[2024-11-08 13:36] LABS: CALCIUM, SERUM 10.4 mg/dL (8.5-10.1); CARBON DIOXIDE 27 mmol/L (21-32); CHLORIDE 102 mmol/L (98-107); CREATININE 1.2 mg/dL (0.6-1.3); GLUCOSE 112 mg/dL (74-106); POTASSIUM 3.7 mmol/L (3.5-5.1); SODIUM SERUM 139 mmol/L (136-145); UREA NITROGEN, BLOOD 21 mg/dL (7-18)
[2024-11-08 13:40] LABS: AMPHETAMINE, URINE NEGATIVE (NEGATIVE); BARBITURATE, URINE NEGATIVE (NEGATIVE); BENZODIAZEPINE, URINE NEGATIVE (NEGATIVE); CANNABINOID, URINE NEGATIVE (NEGATIVE); COCCAINE, URINE NEGATIVE (NEGATIVE); OPIATE, URINE NEGATIVE (NEGATIVE); PHENCYCLIDINE SCREEN,URINE NEGATIVE (NEGATIVE)
[2024-11-08 13:42] LABS: ACETAMINOPHEN <10 ug/ml (10-30); ALANINE AMINOTRANSFERASE 17 U/L (12-78); ALCOHOL, BLOOD < 3 mg/dL (0-10); ALKALINE PHOSPHATASE 88 U/L (46-116); ASPARTATE AMINOTRANSFERASE 15 U/L (15-37); BILIRUBIN,DIRECT 0.1 mg/dL (0.0-0.2); BILIRUBIN,TOTAL 0.4 mg/dL (0.2-1.0); TOTAL PROTEIN, SERUM 8.3 g/dL (6.4-8.2)
== END 2024-11-08 15:45 | disposition left against medical advice (07) ==
LOC: ER 12:34
DX: M54.50 Low back pain, unspecified (principal); G89.29 Other chronic pain; F20.9 Schizophrenia, unspecified; F32.A Depression, unspecified; I10 Essential (primary) hypertension; M41.9 Scoliosis, unspecified; Z79.899 Other long term (current) drug therapy; Z87.891 Personal history of nicotine dependence; Z60.2 Problems related to living alone; Z20.822 Contact with and (suspected) exposure to COVID-19
CPT/HCPCS: 36415; 80048-TC; 80076-TC; 81001; 85025-TC; G0480

== ENCOUNTER 2024-12-01 21:31 | Emergency (ER) | payer OTHER ==
[~2024-12-01] VITALS: Ht 182.9 cm; Wt 73.9 kg
[2024-12-01 21:55] VITALS: TEMP 98.4
[2024-12-01 22:15] LABS: BASOPHILS # (AUTO) 0.1 K/uL (0.0-0.2); BASOPHILS % (AUTO) 0.8 % (0.0-2.0); EOSINOPHILS # (AUTO) 0.1 K/uL (0.0-0.7); EOSINOPHILS % (AUTO) 0.8 % (0.0-6.0); HEMATOCRIT 45 % (39-51); HEMOGLOBIN 14.4 g/dL (13.5-17.5); LYMPHOCYTES # (AUTO) 2.5 K/uL (0.8-4.8); LYMPHOCYTES % (AUTO) 25.6 % (20.0-44.0); MEAN CORPUSCULAR HEMOGLOBIN 30 PG (26.0-33.0); MEAN CORPUSCULAR HGB CONC 32 g/dl (31.0-36.0); MEAN CORPUSCULAR VOLUME 94 fL (80-96); MONOCYTES # (AUTO) 0.7 K/uL (0.1-1.30); MONOCYTES % (AUTO) 7.2 % (2.0-12.0); NEUTROPHILS # (AUTO) 6.3 K/uL (1.8-8.9); NEUTROPHILS % (AUTO) 65.6 % (43.0-81.0); PLATELET COUNT (AUTO) 271 K/uL (150-450); RED BLOOD CELL COUNT(AUTO) 4.79 MIL/uL (4.5-6.0); RED CELL DISTRIBUTION WIDTH 15.4 % (11.5-15.0); WHITE BLOOD COUNT (AUTO) 9.7 K/uL (4.3-11.0)
[2024-12-01 22:23] LABS: CALCIUM, SERUM 9.8 mg/dL (8.5-10.1); CARBON DIOXIDE 29 mmol/L (21-32); CHLORIDE 104 mmol/L (98-107); CREATININE 1.7 mg/dL (0.6-1.3); GLUCOSE 100 mg/dL (74-106); POTASSIUM 3.7 mmol/L (3.5-5.1); SODIUM SERUM 142 mmol/L (136-145); UREA NITROGEN, BLOOD 19 mg/dL (7-18)
[2024-12-01 22:29] LABS: ALANINE AMINOTRANSFERASE 13 U/L (12-78); ALBUMIN 4.1 g/dL (3.4-5.0); ALCOHOL, BLOOD < 3 mg/dL (0-10); ALKALINE PHOSPHATASE 121 U/L (46-116); ASPARTATE AMINOTRANSFERASE 18 U/L (15-37); BILIRUBIN,DIRECT 0.1 mg/dL (0.0-0.2); BILIRUBIN,TOTAL 0.4 mg/dL (0.2-1.0); SALICYLATE 3.9 mg/dL (2.8-20.0); TOTAL PROTEIN, SERUM 8.8 g/dL (6.4-8.2)
[2024-12-01 22:30] LABS: ACETAMINOPHEN <10 ug/ml (10-30)
[2024-12-01 23:15] LABS: APPEARANCE,URINE CLEAR (CLEAR); BILIRUBIN,URINE 1+ (NEGATIVE); BLOOD, URINE NEGATIVE Ery/uL (NEGATIVE); COLOR,URINE YELLOW (YELLOW); KETONES,URINE TRACE mg/dL (NEGATIVE); LEUKOCYTE ESTERASE ,URINE NEGATIVE (NEGATIVE); NITRITE, URINE NEGATIVE (NEGATIVE); PROTEIN,URINE 1+ mg/dl (NEGATIVE); UGLUCOSE NEGATIVE (NEGATIVE); UROBILINOGEN,URINE 0.2 EU/dL (0.2)
[2024-12-01 23:23] LABS: AMPHETAMINE, URINE NEGATIVE (NEGATIVE); BARBITURATE, URINE NEGATIVE (NEGATIVE); BENZODIAZEPINE, URINE NEGATIVE (NEGATIVE); COCCAINE, URINE NEGATIVE (NEGATIVE); PHENCYCLIDINE SCREEN,URINE NEGATIVE (NEGATIVE)
[2024-12-01 23:34] LABS: CANNABINOID, URINE POSITIVE (NEGATIVE); OPIATE, URINE POSITIVE (NEGATIVE)
[2024-12-01 23:51] LABS: MUCUS,URINE Moderate /LPF (None Seen); SPERM,URINE Many /HPF (None Seen)
[2024-12-01 23:52] LABS: ADD URINE CULTURE NO; BACTERIA,URINE Rare /HPF (None Seen); RBC,URINE 0-2 /HPF (0-2); SQUAMOUS EPITHELIAL CELL,UR Rare /HPF (None Seen); WBC,URINE 0-2 /HPF (0-3)
[2024-12-02 05:06] VITALS: BP 119/77; O2SAT 100
== END 2024-12-02 01:00 | disposition home or self-care (01) ==
LOC: ER 21:33
DX: R45.851 Suicidal ideations (principal); M41.9 Scoliosis, unspecified; I10 Essential (primary) hypertension; Z79.899 Other long term (current) drug therapy; Z60.2 Problems related to living alone; Z20.822 Contact with and (suspected) exposure to COVID-19
CPT/HCPCS: 36415; 80048-TC; 80076-TC; 81001; 85025-TC; G0480

== ENCOUNTER 2024-12-15 14:50 | Emergency (ER) | payer OTHER ==
[~2024-12-15] VITALS: Ht 190.5 cm; Wt 74.4 kg
[2024-12-15 15:08] VITALS: BP 137/84; TEMP 98.1; O2SAT 97
[2024-12-15] MEDS ORDERED: TRAM50TA2 PO (15:33)
== END 2024-12-15 15:39 | disposition home or self-care (01) ==
LOC: ER 14:56
DX: G89.29 Other chronic pain (principal); M54.9 Dorsalgia, unspecified; I10 Essential (primary) hypertension; F19.10 Other psychoactive substance abuse, uncomplicated; M41.80 Other forms of scoliosis, site unspecified; Z79.899 Other long term (current) drug therapy; Z86.59 Personal history of other mental and behavioral disorders; Z60.2 Problems related to living alone

== ENCOUNTER 2024-12-29 11:28 | Inpatient (IN) | payer MEDICARE, OTHER ==
[~2024-12-29] VITALS: Ht 190.5 cm; Wt 71.2 kg
[2024-12-29 12:51] LABS: PLATELET COUNT (AUTO) 312 K/uL (150-450); RED BLOOD CELL COUNT(AUTO) 4.65 MIL/uL (4.5-6.0); RED CELL DISTRIBUTION WIDTH 15.6 % (11.5-15.0); WHITE BLOOD COUNT (AUTO) 11.2 K/uL (4.3-11.0)
[2024-12-29 13:03] LABS: CALCIUM, SERUM 11.0 mg/dL (8.5-10.1); CREATININE 2.5 mg/dL (0.6-1.3); SODIUM SERUM 142 mmol/L (136-145); UREA NITROGEN, BLOOD 31 mg/dL (7-18)
[2024-12-29 13:06] LABS: ALCOHOL, BLOOD < 3 mg/dL (0-10); ASPARTATE AMINOTRANSFERASE 19 U/L (15-37); TOTAL PROTEIN, SERUM 9.7 g/dL (6.4-8.2)
[2024-12-29 14:08] LABS: APPEARANCE,URINE CLEAR (CLEAR); BLOOD, URINE Moderate Ery/uL (NEGATIVE); LEUKOCYTE ESTERASE ,URINE Negative (NEGATIVE); UGLUCOSE Negative (NEGATIVE)
[2024-12-29 14:16] LABS: NITRITE, URINE NEGATIVE (NEGATIVE)
[2024-12-29 14:21] LABS: ADD URINE CULTURE NO
[2024-12-29 14:23] LABS: AMPHETAMINE, URINE POSITIVE (NEGATIVE); BARBITURATE, URINE NEGATIVE (NEGATIVE); BENZODIAZEPINE, URINE NEGATIVE (NEGATIVE); CANNABINOID, URINE NEGATIVE (NEGATIVE); COCCAINE, URINE NEGATIVE (NEGATIVE); OPIATE, URINE NEGATIVE (NEGATIVE)
[2024-12-29] MEDS: IV NS 0.9% 1,000 ML BAG IV ONE (15:46)
[2024-12-29] MEDS ORDERED: OLANZAPINE 10 MG VIAL IM ONE (18:58)
[2024-12-29] MEDS: OLANZAPINE 10 MG VIAL IM ONE (19:06)
[2024-12-29] MEDS ORDERED: ONDANSETRON HCL/PF 4 MG/2 ML VIAL IVP PRN (19:30)
[2024-12-29] MEDS ORDERED: DOSING PER PHARMACY-CEFEPIME IVPB XX PRN (19:30)
[2024-12-29 20:00] VITALS: BP 124/87; TEMP 98.1; O2SAT 100
[2024-12-29] MEDS: IV NS 0.9% 1,000 ML IV SCH (20:32)
[2024-12-29] MEDS ORDERED: OLANZAPINE 10 MG VIAL IM PRN (21:00)
[2024-12-29] MEDS: CEFEPIME 1 GM in IV D5W 50 ML IV SCH (21:10)
[2024-12-29] MEDS: HEPARIN SODIUM, PORCINE 5000 UNITS/1 ML VIAL SQ SCH (21:20)
[2024-12-29] MEDS ORDERED: POTASSIUM CHLORIDE 20 MEQ TAB.PRT.SR PO ONE (22:30)
[2024-12-29] MEDS: POTASSIUM CL. PREMIX PERIPHER. 50 ML IV SCH (23:11)
[2024-12-30 00:21] VITALS: BP 147/96; TEMP 98.1; O2SAT 97
[2024-12-30 04:39] VITALS: BP 120/88; TEMP 98.1; O2SAT 100
[2024-12-30 07:45] LABS: PLATELET COUNT (AUTO) 296 K/uL (150-450); RED BLOOD CELL COUNT(AUTO) 4.36 MIL/uL (4.5-6.0); RED CELL DISTRIBUTION WIDTH 15.4 % (11.5-15.0); WHITE BLOOD COUNT (AUTO) 12.3 K/uL (4.3-11.0)
[2024-12-30 08:00] VITALS: BP_SYST 129; BP_SYST 145; BP_DIAS 66; BP_DIAS 91; TEMP 99.7; O2SAT 100; O2SAT 94
[2024-12-30 08:02] LABS: ASPARTATE AMINOTRANSFERASE 21.0 U/L (15-37); CALCIUM, SERUM 10.0 mg/dL (8.5-10.1); CREATININE 1.6 mg/dL (0.6-1.3); PHOSPHORUS 2.0 mg/dL (2.5-4.9); SODIUM SERUM 148.0 mmol/L (136-145); TOTAL PROTEIN, SERUM 8.1 g/dL (6.4-8.2); UREA NITROGEN, BLOOD 24.0 mg/dL (7-18)
[2024-12-30] MEDS: DOCUSATE SODIUM LIQ 100 MG/10 ML UDC PO SCH (08:11)
[2024-12-30] MEDS: POLYETHYLENE GLYCOL 3350 17 GM POWD.PACK PO SCH (08:11)
[2024-12-30] MEDS: GABAPENTIN 300 MG CAPSULE PO SCH (08:11)
[2024-12-30] MEDS: QUETIAPINE FUMARATE 100 MG TABLET PO SCH (08:11)
[2024-12-30] MEDS: DULOXETINE HCL 30 MG CAPSULE.DR PO SCH (08:11)
[2024-12-30] MEDS ORDERED: IV 1/2NS 1000 ML 1,000 ML IV SCH (10:00)
[2024-12-30] MEDS: IV 1/2NS 1000 ML 1,000 ML IV PRN (10:38)
[2024-12-30] MEDS: POTASSIUM CHLORIDE 10 MEQ TABLET.SA PO ONE (11:04)
[2024-12-30 12:00] VITALS: BP 126/90; TEMP 99.6; O2SAT 95
[2024-12-30] MEDS ORDERED: POTASSIUM CL. PREMIX PERIPHER. 50 ML IV SCH (12:00)
[2024-12-30] MEDS: POTASSIUM CL. PREMIX PERIPHER. 50 ML IV SCH (12:31)
[2024-12-30 16:00] VITALS: BP 117/81; TEMP 98.6; O2SAT 96
[2024-12-30] MEDS: K PHOS NEUTRAL 250 MG TABLET PO ONE (16:26)
[2024-12-30] MEDS: IV NS 0.9% 250 ML IV PRN (18:12)
[2024-12-30 20:00] VITALS: BP 160/114; TEMP 97.9; O2SAT 96
[2024-12-30] MEDS: hydrALAZINE HCL IV 20 MG VIAL IV PRN (20:47)
[2024-12-31] VITALS: BP 144/82; TEMP 97.9; O2SAT 96
[2024-12-31 04:00] VITALS: BP 119/89; TEMP 97.9; O2SAT 100
[2024-12-31 07:33] LABS: PLATELET COUNT (AUTO) 257 K/uL (150-450); RED BLOOD CELL COUNT(AUTO) 4.39 MIL/uL (4.5-6.0); RED CELL DISTRIBUTION WIDTH 15.3 % (11.5-15.0); WHITE BLOOD COUNT (AUTO) 8.3 K/uL (4.3-11.0)
[2024-12-31 08:00] VITALS: BP 126/83; TEMP 98.2; O2SAT 97
[2024-12-31 08:43] LABS: ASPARTATE AMINOTRANSFERASE 16.0 U/L (15-37); CALCIUM, SERUM 9.1 mg/dL (8.5-10.1); CREATININE 1.4 mg/dL (0.6-1.3); PHOSPHORUS 3.4 mg/dL (2.5-4.9); SODIUM SERUM 148.0 mmol/L (136-145); TOTAL PROTEIN, SERUM 7.5 g/dL (6.4-8.2); UREA NITROGEN, BLOOD 26.0 mg/dL (7-18)
[2024-12-31 09:37] LABS: CREATINE KINASE, TOTAL 312.0 U/L (39-308)
[2024-12-31 16:00] VITALS: BP 122/89; TEMP 98.6; O2SAT 97
[2024-12-31 20:00] VITALS: BP 133/90; TEMP 98.4; O2SAT 97
[2024-12-31] MEDS: MORPHINE SULFATE INJ 2 MG/ML DISP.SYRIN IV PRN (20:59)
[2025-01-01] VITALS: BP 127/90; TEMP 98.4; O2SAT 96
[2025-01-01 04:00] VITALS: BP 123/86; TEMP 98.4; O2SAT 95
[2025-01-01 05:08] LABS: FOLIC ACID > 20.0 ng/mL (>3.0)
[2025-01-01 05:08] LABS: PTH, INTACT 18 pg/mL (15-65)
[2025-01-01 07:18] LABS: CALCIUM, SERUM 9.3 mg/dL (8.5-10.1); CREATININE 1.3 mg/dL (0.6-1.3); SODIUM SERUM 145.0 mmol/L (136-145); UREA NITROGEN, BLOOD 27.0 mg/dL (7-18)
[2025-01-01 08:00] VITALS: BP 137/92; TEMP 98.6; O2SAT 96
[2025-01-01] MEDS: ACETAMINOPHEN 325 MG TABLET PO PRN (09:00)
[2025-01-01 09:49] VITALS: BP 137/92; TEMP 98.6; O2SAT 99
[2025-01-01] MEDS: POTASSIUM CHLORIDE 20 MEQ TAB.PRT.SR PO SCH (10:41)
[2025-01-01 12:00] VITALS: BP 111/77; TEMP 98.4; O2SAT 95
[2025-01-01 12:07] VITALS: BP 111/77; TEMP 98.4; O2SAT 95
[2025-01-04 08:07] LABS: *SPE A/G RATIO 1.1 (0.7-1.7); *SPE ALBUMIN 3.3 g/dL (2.9-4.4); *SPE ALPHA-1-GLOBULIN 0.2 g/dL (0.0-0.4); *SPE ALPHA-2-GLOBULIN 0.9 g/dL (0.4-1.0); *SPE BETA GLOBULIN 0.9 g/dL (0.7-1.3); *SPE GLOBULIN, TOTAL 3.1 g/dL (2.2-3.9); *SPE M-SPIKE Not Observed g/dL (Not Observed); *SPE PROTEIN TOTAL 6.4 g/dL (6.0-8.5); *SPEGAMMA GLOBULIN 1.0 g/dL (0.4-1.8)
[2025-01-04 09:07] LABS: VITAMIN B1 THIAMINE,WB 118.0 nmol/L (66.5-200.0)
== END 2025-01-01 15:00 | DRG 640 ==
LOC: ER 12:44 → TELE1 19:01 → MEDSG1 01-01 14:15
PROVIDERS: ADMIT Internal Medicine; ATTEND Internal Medicine
DX: E86.0 Dehydration (principal); G92.8 Other toxic encephalopathy; N17.0 Acute kidney failure with tubular necrosis; N39.0 Urinary tract infection, site not specified; R64 Cachexia; Z68.1 Body mass index [BMI] 19.9 or less, adult; E87.20 Acidosis, unspecified; E87.6 Hypokalemia; F15.10 Other stimulant abuse, uncomplicated; I12.9 Hypertensive chronic kidney disease with stage 1 through stage 4 chronic kidney disease, or unspecified chronic kidney disease; N18.9 Chronic kidney disease, unspecified; D64.9 Anemia, unspecified; F20.9 Schizophrenia, unspecified; B96.89 Other specified bacterial agents as the cause of diseases classified elsewhere; E87.0 Hyperosmolality and hypernatremia; Z20.822 Contact with and (suspected) exposure to COVID-19
CPT/HCPCS: 36415; 80048-TC; 80053-TC; 80076-TC; 81001; 82550-TC; 82553; 82607-TC; 83735-TC; 83921; 83970; 84100-TC; 84155; 84165; 84425; 84443-TC; 85025-TC; 87081-TC; A4223; A6253; G0378; G0480; J0360; J0692; J1644; J2270; J3480; J3490; J7030; J7050; J7060

== ENCOUNTER 2025-03-08 10:49 | Inpatient (IN) | payer MEDICARE, OTHER ==
[~2025-03-08] VITALS: Ht 190.5 cm; Wt 68.8 kg
[2025-03-08 11:43] LABS: PLATELET COUNT (AUTO) 249 K/uL (150-450); RED BLOOD CELL COUNT(AUTO) 4.68 MIL/uL (4.5-6.0); RED CELL DISTRIBUTION WIDTH 15.0 % (11.5-15.0); WHITE BLOOD COUNT (AUTO) 6.4 K/uL (4.3-11.0)
[2025-03-08 11:56] LABS: CALCIUM, SERUM 9.8 mg/dL (8.5-10.1); CREATININE 1.4 mg/dL (0.6-1.3); SODIUM SERUM 144 mmol/L (136-145); UREA NITROGEN, BLOOD 14 mg/dL (7-18)
[2025-03-08 12:03] LABS: ALCOHOL, BLOOD < 3 mg/dL (0-10); ASPARTATE AMINOTRANSFERASE 27 U/L (15-37); TOTAL PROTEIN, SERUM 8.2 g/dL (6.4-8.2)
[2025-03-08] MEDS ORDERED: AMLO-212 PO (12:08)
[2025-03-08] MEDS ORDERED: LINA290C PO (12:08)
[2025-03-08] MEDS ORDERED: ALBU8.5H8 IH (12:08)
[2025-03-08] MEDS ORDERED: NALO25TA PO (12:08)
[2025-03-08] MEDS ORDERED: IPRA4AER IH (12:08)
[2025-03-08 14:45] VITALS: BP 109/82; TEMP 98.8; O2SAT 96
[2025-03-08] MEDS ORDERED: Z GUARD REMEDY 4 OZ OINT TP PRN (15:30)
[2025-03-08] MEDS ORDERED: ONDANSETRON HCL/PF 4 MG/2 ML VIAL IVP PRN (15:30)
[2025-03-08] MEDS ORDERED: MAGNESIUM HYDROXIDE 30 ML UDC PO PRN (15:30)
[2025-03-08] MEDS ORDERED: MAG HYDROX/AL HYDROX/SIMETH 30 ML UDC PO PRN (15:30)
[2025-03-08] MEDS ORDERED: IV NS 0.9% 1,000 ML IV PRN (15:30)
[2025-03-08 16:00] VITALS: BP 112/86; TEMP 97.6; O2SAT 98
[2025-03-08] MEDS: IV NS 0.9% 1,000 ML IV SCH (16:08)
[2025-03-08] MEDS: ENOXAPARIN SODIUM 40 MG/0.4 ML DISP.SYRIN SQ SCH (16:09)
[2025-03-08 18:00] VITALS: BP 112/86; TEMP 97.6; O2SAT 98
[2025-03-08] MEDS ORDERED: MORPHINE SULFATE INJ 2 MG/ML DISP.SYRIN IV PRN (19:00)
[2025-03-08] MEDS: HYDROCODONE/APAP 5/325MG TABLET PO PRN (19:19)
[2025-03-08] MEDS: IPRATROPIUM NEB FS 0.5 MG/2.5 ML AMPUL.NEB NEB SCH (19:38)
[2025-03-08] MEDS: ALBUTEROL FS 2.5 MG/3 ML VIAL.NEB NEB SCH (19:38)
[2025-03-08 19:39] VITALS: O2SAT 98
[2025-03-08 19:54] VITALS: O2SAT 100
[2025-03-08 20:00] VITALS: BP 109/76; TEMP 97.9; O2SAT 96
[2025-03-08] MEDS: QUETIAPINE FUMARATE 100 MG TABLET PO SCH (20:09)
[2025-03-08] MEDS ORDERED: Medication Not On Formulary EA (Ipratropium/Albuterol Sulfate (Combivent Respimat 20-100 IH SCH (21:00)
[2025-03-08] MEDS ORDERED: Medication Not On Formulary EA (Naloxegol Oxalate (Movantik) 25 MG) PO SCH (22:00)
[2025-03-08] MEDS: ACETAMINOPHEN 325 MG TABLET PO PRN (23:41)
[2025-03-09] VITALS (11 sets, daily range): BP systolic 95–108; BP diastolic 73–86; TEMP 97.7–98.4; O2SAT 96–100
[2025-03-09 05:50] LABS: PLATELET COUNT (AUTO) 207 K/uL (150-450); RED BLOOD CELL COUNT(AUTO) 4.27 MIL/uL (4.5-6.0); RED CELL DISTRIBUTION WIDTH 14.7 % (11.5-15.0); WHITE BLOOD COUNT (AUTO) 5.5 K/uL (4.3-11.0)
[2025-03-09 05:58] LABS: CALCIUM, SERUM 9.1 mg/dL (8.5-10.1); CREATININE 1.2 mg/dL (0.6-1.3); PHOSPHORUS 2.1 mg/dL (2.5-4.9); SODIUM SERUM 142 mmol/L (136-145); UREA NITROGEN, BLOOD 14 mg/dL (7-18)
[2025-03-09] MEDS: AMLODIPINE BESYLATE 5 MG TABLET PO SCH (08:28)
[2025-03-09] MEDS ORDERED: QUETIAPINE FUMARATE 100 MG TABLET PO SCH (09:00)
[2025-03-09 10:16] LABS: APPEARANCE,URINE CLEAR (CLEAR); BLOOD, URINE NEGATIVE Ery/uL (NEGATIVE); LEUKOCYTE ESTERASE ,URINE NEGATIVE (NEGATIVE); NITRITE, URINE NEGATIVE (NEGATIVE); UGLUCOSE NEGATIVE (NEGATIVE)
[2025-03-09 10:28] LABS: ADD URINE CULTURE NO; SQUAMOUS EPITHELIAL CELL,UR None Seen /HPF (None Seen)
[2025-03-09 10:41] LABS: AMPHETAMINE, URINE NEGATIVE (NEGATIVE); BARBITURATE, URINE NEGATIVE (NEGATIVE); BENZODIAZEPINE, URINE NEGATIVE (NEGATIVE); CANNABINOID, URINE NEGATIVE (NEGATIVE); COCCAINE, URINE NEGATIVE (NEGATIVE)
[2025-03-09 10:43] LABS: OPIATE, URINE POSITIVE (NEGATIVE)
[2025-03-09] MEDS: POTASSIUM CHLORIDE 20 MEQ TAB.PRT.SR PO ONE (10:58)
[2025-03-09] MEDS ORDERED: POTASSIUM CHLORIDE 20 MEQ TAB.PRT.SR PO ONE (11:00)
[2025-03-09] MEDS: K PHOS NEUTRAL 250 MG TABLET PO ONE (16:39)
[2025-03-10] VITALS (10 sets, daily range): BP systolic 108–129; BP diastolic 74–80; TEMP 97.5–98.2; O2SAT 96–99
[2025-03-10 06:46] LABS: CALCIUM, SERUM 9.7 mg/dL (8.5-10.1); CREATININE 1.1 mg/dL (0.6-1.3); PHOSPHORUS 2.4 mg/dL (2.5-4.9); SODIUM SERUM 141.0 mmol/L (136-145); UREA NITROGEN, BLOOD 9.0 mg/dL (7-18)
[2025-03-10] MEDS: K PHOS NEUTRAL 250 MG TABLET PO ONE (16:20)
[2025-03-11 07:30] VITALS: BP 91/65; TEMP 97.5; O2SAT 99
[2025-03-11 08:03] VITALS: BP 91/65
[2025-03-11 08:22] LABS: CALCIUM, SERUM 9.3 mg/dL (8.5-10.1); CREATININE 1.1 mg/dL (0.6-1.3); PHOSPHORUS 2.9 mg/dL (2.5-4.9); SODIUM SERUM 143.0 mmol/L (136-145); UREA NITROGEN, BLOOD 12.0 mg/dL (7-18)
[2025-03-11] MEDS ORDERED: LIDO30AD10 TP (10:03)
[2025-03-11] MEDS: POTASSIUM CHLORIDE 20 MEQ POWDER PACKET PO ONE (10:58)
[2025-03-11 12:42] VITALS: O2SAT 98
[2025-03-11 12:52] VITALS: O2SAT 100; O2SAT 99
== END 2025-03-11 13:15 | DRG 551 ==
LOC: ER 10:51 → MED 14:25
PROVIDERS: ADMIT Internal Medicine; ATTEND Internal Medicine
DX: M51.360 Other intervertebral disc degeneration, lumbar region with discogenic back pain only (principal); N17.0 Acute kidney failure with tubular necrosis; M41.9 Scoliosis, unspecified; G89.29 Other chronic pain; F20.9 Schizophrenia, unspecified; E86.0 Dehydration; I12.9 Hypertensive chronic kidney disease with stage 1 through stage 4 chronic kidney disease, or unspecified chronic kidney disease; N18.9 Chronic kidney disease, unspecified; J44.9 Chronic obstructive pulmonary disease, unspecified; F32.9 Major depressive disorder, single episode, unspecified; Z20.822 Contact with and (suspected) exposure to COVID-19; Z79.899 Other long term (current) drug therapy; Z79.51 Long term (current) use of inhaled steroids; F29 Unspecified psychosis not due to a substance or known physiological condition
CPT/HCPCS: 36415; 80048-TC; 80076-TC; 81001; 83735-TC; 84100-TC; 85025-TC; 94760-TC; 94799-TC; 97110-TC; 97116-TC; 97530-TC; A4223; G0378; G0480; J1650; J7030

== ENCOUNTER 2025-03-24 19:24 | Emergency (ER) | payer MEDICARE, OTHER ==
[~2025-03-24] VITALS: Ht 172.7 cm; Wt 71.2 kg
[~2025-03-24 19:24] MED LIST changes: +ALBU8.5H8 IH; +AMLO-212 PO; -DULO30CA52 PO; -GABA300C PO; +IPRA4AER IH; +LIDO30AD10 TP; +LINA290C PO; +NALO25TA PO; -TRAM50TA2 PO
[2025-03-24 23:00] VITALS: BP 132/74; TEMP 98.1
[2025-03-24] MEDS ORDERED: HYDROCODONE/APAP 5/325MG TABLET ONE (23:52)
[2025-03-24] MEDS: HYDROCODONE/APAP 5/325MG TABLET PO ONE (23:54)
[2025-03-25 01:12] VITALS: O2SAT 97
== END 2025-03-25 01:13 | disposition home or self-care (01) ==
LOC: ER 19:40
DX: M54.9 Dorsalgia, unspecified (principal); I10 Essential (primary) hypertension; M41.9 Scoliosis, unspecified; F19.10 Other psychoactive substance abuse, uncomplicated; Z79.899 Other long term (current) drug therapy; Z86.79 Personal history of other diseases of the circulatory system; Z86.59 Personal history of other mental and behavioral disorders

== ENCOUNTER 2025-03-26 14:06 | Emergency (ER) | payer MEDICARE, OTHER ==
[~2025-03-26] VITALS: Ht 172.7 cm; Wt 30.4 kg
[2025-03-26 14:23] VITALS: TEMP 98
[2025-03-26 15:38] LABS: PLATELET COUNT (AUTO) 235 K/uL (150-450); RED BLOOD CELL COUNT(AUTO) 4.70 MIL/uL (4.5-6.0); RED CELL DISTRIBUTION WIDTH 15.0 % (11.5-15.0); WHITE BLOOD COUNT (AUTO) 4.6 K/uL (4.3-11.0)
[2025-03-26 15:48] LABS: CALCIUM, SERUM 9.9 mg/dL (8.5-10.1); CREATININE 1.3 mg/dL (0.6-1.3); SODIUM SERUM 141 mmol/L (136-145); UREA NITROGEN, BLOOD 12 mg/dL (7-18)
[2025-03-26] MEDS ORDERED: HYDROCODONE/APAP 5/325MG TABLET ONE (15:49)
[2025-03-26] MEDS: HYDROCODONE/APAP 5/325MG TABLET PO ONE (15:52)
[2025-03-26 15:54] LABS: ASPARTATE AMINOTRANSFERASE 14 U/L (15-37); TOTAL PROTEIN, SERUM 8.2 g/dL (6.4-8.2)
[2025-03-26 16:07] LABS: APPEARANCE,URINE CLEAR (CLEAR); BLOOD, URINE Small Ery/uL (NEGATIVE); LEUKOCYTE ESTERASE ,URINE Negative (NEGATIVE); NITRITE, URINE NEGATIVE (NEGATIVE); UGLUCOSE Negative (NEGATIVE)
[2025-03-26 16:08] LABS: ADD URINE CULTURE NO; SQUAMOUS EPITHELIAL CELL,UR Rare /HPF (None Seen)
[2025-03-26 16:14] LABS: AMPHETAMINE, URINE POSITIVE (NEGATIVE); BARBITURATE, URINE NEGATIVE (NEGATIVE); BENZODIAZEPINE, URINE NEGATIVE (NEGATIVE); COCCAINE, URINE NEGATIVE (NEGATIVE)
[2025-03-26 16:15] LABS: CANNABINOID, URINE POSITIVE (NEGATIVE); OPIATE, URINE POSITIVE (NEGATIVE)
[2025-03-26 18:00] VITALS: BP 125/88; O2SAT 98
[2025-03-27] MEDS ORDERED: IBUP-1490 PO (15:51)
== END 2025-03-26 19:26 | disposition home or self-care (01) ==
LOC: ER 14:55
DX: G89.29 Other chronic pain (principal); M54.9 Dorsalgia, unspecified; F15.10 Other stimulant abuse, uncomplicated; I10 Essential (primary) hypertension; M41.9 Scoliosis, unspecified; F19.10 Other psychoactive substance abuse, uncomplicated; Z79.899 Other long term (current) drug therapy; Z86.79 Personal history of other diseases of the circulatory system; Z87.09 Personal history of other diseases of the respiratory system; Z86.59 Personal history of other mental and behavioral disorders
CPT/HCPCS: 36415; 80048-TC; 80076-TC; 81001; 85025-TC; G0480

== ENCOUNTER 2025-03-27 14:43 | Emergency (ER) | payer MEDICARE, OTHER ==
[~2025-03-27] VITALS: Ht 190.5 cm; Wt 77.1 kg
[2025-03-27 14:50] VITALS: BP 123/85; TEMP 98.1
[2025-03-27] MEDS ORDERED: KETOROLAC TROMETHAMINE INJ 30 MG/ML VIAL ONE (15:50)
[2025-03-27] MEDS ORDERED: BACLOFEN (10 MG) 10 MG TABLET ONE (15:50)
[2025-03-27] MEDS ORDERED: IBUP-1490 PO (15:51)
[2025-03-27] MEDS: KETOROLAC TROMETHAMINE INJ 30 MG/ML VIAL IV ONE (15:58)
[2025-03-27] MEDS: BACLOFEN (10 MG) 10 MG TABLET PO ONE (15:59)
[2025-03-27 16:03] VITALS: O2SAT 98
== END 2025-03-27 16:07 | disposition home or self-care (01) ==
LOC: ER 14:45
DX: M54.9 Dorsalgia, unspecified (principal); G89.29 Other chronic pain; I11.9 Hypertensive heart disease without heart failure; M41.9 Scoliosis, unspecified; Z79.899 Other long term (current) drug therapy
CPT/HCPCS: 99283; 96372; J1885

== ENCOUNTER 2025-05-16 07:36 | Inpatient (IN) | payer MEDICARE, OTHER ==
[~2025-05-16] VITALS: Ht 188 cm; Wt 73.0 kg
[~2025-05-16 07:36] MED LIST changes: +IBUP-1490 PO
[2025-05-16 08:16] LABS: PLATELET COUNT (AUTO) 229 K/uL (150-450); RED BLOOD CELL COUNT(AUTO) 4.23 MIL/uL (4.5-6.0); RED CELL DISTRIBUTION WIDTH 15.6 % (11.5-15.0); WHITE BLOOD COUNT (AUTO) 4.5 K/uL (4.3-11.0)
[2025-05-16 08:35] LABS: CALCIUM, SERUM 9.9 mg/dL (8.5-10.1); CREATININE 1.2 mg/dL (0.6-1.3); SODIUM SERUM 141 mmol/L (136-145); UREA NITROGEN, BLOOD 10 mg/dL (7-18)
[2025-05-16 08:38] LABS: ASPARTATE AMINOTRANSFERASE 17 U/L (15-37); TOTAL PROTEIN, SERUM 7.9 g/dL (6.4-8.2)
[2025-05-16 08:39] LABS: AMPHETAMINE, URINE NEGATIVE (NEGATIVE); BARBITURATE, URINE NEGATIVE (NEGATIVE); BENZODIAZEPINE, URINE NEGATIVE (NEGATIVE); CANNABINOID, URINE NEGATIVE (NEGATIVE); COCCAINE, URINE NEGATIVE (NEGATIVE)
[2025-05-16 08:40] LABS: ALCOHOL, BLOOD < 3 mg/dL (0-10)
[2025-05-16 08:40] LABS: OPIATE, URINE POSITIVE (NEGATIVE)
[2025-05-16 08:41] LABS: APPEARANCE,URINE CLEAR (CLEAR); BLOOD, URINE NEGATIVE Ery/uL (NEGATIVE); LEUKOCYTE ESTERASE ,URINE NEGATIVE (NEGATIVE); NITRITE, URINE NEGATIVE (NEGATIVE); UGLUCOSE NEGATIVE (NEGATIVE)
[2025-05-16] MEDS ORDERED: LIDO1ADH82 TP (08:51)
[2025-05-16] MEDS ORDERED: ZOLPIDEM TARTRATE 5 MG TABLET PO PRN ×2 (11:00)
[2025-05-16] MEDS ORDERED: LORAZEPAM 0.5 MG TABLET PO PRN ×2 (11:00)
[2025-05-16] MEDS ORDERED: MAG HYDROX/AL HYDROX/SIMETH 30 ML UDC PO PRN (11:00)
[2025-05-16] MEDS ORDERED: ALBUTEROL FS 2.5 MG/3 ML VIAL.NEB NEB PRN ×2 (13:00)
[2025-05-16] MEDS: HYDROCODONE/APAP 5/325MG TABLET PO PRN (14:35)
[2025-05-16 16:08] VITALS: BP 153/99; TEMP 97.8; O2SAT 100
[2025-05-16] MEDS: IBUPROFEN 600 MG TABLET PO SCH (18:34)
[2025-05-16 20:49] VITALS: BP 129/96; TEMP 97.8; O2SAT 97
[2025-05-16 20:50] VITALS: O2SAT 97
[2025-05-16 21:05] VITALS: O2SAT 99
[2025-05-16] MEDS: IPRATROPIUM NEB FS 0.5 MG/2.5 ML AMPUL.NEB NEB SCH (21:08)
[2025-05-16] MEDS: ALBUTEROL FS 2.5 MG/3 ML VIAL.NEB NEB SCH (21:08)
[2025-05-17] VITALS (8 sets, daily range): BP systolic 110–141; BP diastolic 71–87; TEMP 97.8–98.4; O2SAT 96–100
[2025-05-17 08:21] LABS: LDL 73 mg/dL (0-99)
[2025-05-17 08:23] LABS: ASPARTATE AMINOTRANSFERASE 12.0 U/L (15-37); CALCIUM, SERUM 9.5 mg/dL (8.5-10.1); CREATININE 1.1 mg/dL (0.6-1.3); SODIUM SERUM 140.0 mmol/L (136-145); TOTAL PROTEIN, SERUM 7.4 g/dL (6.4-8.2); UREA NITROGEN, BLOOD 10.0 mg/dL (7-18)
[2025-05-17] MEDS: AMLODIPINE BESYLATE 5 MG TABLET PO SCH (08:47)
[2025-05-17] MEDS: LIDOCAINE 5% (PATCH) 1 EA PATCH TP SCH (08:47)
[2025-05-17] MEDS: GABAPENTIN 100 MG CAPSULE PO SCH (12:32)
[2025-05-17] MEDS: QUETIAPINE FUMARATE 100 MG TABLET PO SCH (21:25)
[2025-05-18] VITALS (12 sets, daily range): BP systolic 107–146; BP diastolic 77–105; TEMP 97.7–98.8; O2SAT 96–100
[2025-05-19] VITALS (7 sets, daily range): BP systolic 112–128; BP diastolic 75–92; TEMP 97.7–98.2; O2SAT 95–100
[2025-05-20] VITALS (9 sets, daily range): BP systolic 121; BP diastolic 86; TEMP 98.1; O2SAT 93–100
[2025-05-21] VITALS (10 sets, daily range): BP systolic 106–112; BP diastolic 72–79; TEMP 97.5–98.8; O2SAT 94–100
[2025-05-21] MEDS: ACETAMINOPHEN 325 MG TABLET PO PRN (02:06)
[2025-05-21] MEDS: IPRATROPIUM NEB FS 0.5 MG/2.5 ML AMPUL.NEB NEB SCH (07:43)
[2025-05-21] MEDS: ALBUTEROL FS 2.5 MG/3 ML VIAL.NEB NEB SCH (07:43)
[2025-05-21] MEDS: GABAPENTIN 300 MG CAPSULE PO SCH (16:27)
[2025-05-22] VITALS (10 sets, daily range): BP systolic 124; BP diastolic 96; TEMP 98.3; O2SAT 94–100
[2025-05-23] VITALS (7 sets, daily range): BP systolic 92–113; BP diastolic 48–82; TEMP 98.2–98.6; O2SAT 96–100
[2025-05-23] MEDS ORDERED: QUETIAPINE FUMARATE 100 MG TABLET ONE (21:06)
[2025-05-23] MEDS ORDERED: HYDROCODONE/APAP 5/325MG TABLET ONE (21:07)
[2025-05-23] MEDS ORDERED: IBUPROFEN 600 MG TABLET ONE (23:19)
[2025-05-24] MEDS ORDERED: HYDROCODONE/APAP 5/325MG TABLET ONE (03:02)
[2025-05-24 08:00] VITALS: BP 131/92; TEMP 98.2; O2SAT 97
[2025-05-24] MEDS: MAGNESIUM HYDROXIDE 30 ML UDC PO PRN (17:26)
[2025-05-24 20:05] VITALS: BP 124/84; TEMP 98.8; O2SAT 99
[2025-05-25 08:36] VITALS: O2SAT 94
[2025-05-25 08:51] VITALS: O2SAT 98
[2025-05-25 09:00] VITALS: BP 118/78
[2025-05-25] MEDS ORDERED: QUET100T PO (10:22)
[2025-05-25] MEDS ORDERED: GABA300C PO (10:26)
[2025-05-25 12:00] VITALS: TEMP 98.8
== END 2025-05-25 13:32 | disposition home or self-care (01) | DRG 885 ==
LOC: ER 07:36 → GPS 10:11 → GPSOV 05-18 17:31 → MED 05-21 12:36 → GPSOV 05-21 17:01 → GPS 05-22 18:21 → GPSOV2 05-23 18:09
PROVIDERS: ADMIT Psychiatry & Neurology Psychiatry; ATTEND Nurse Practitioner Acute Care
DX: F39 Unspecified mood [affective] disorder (principal); F32.3 Major depressive disorder, single episode, severe with psychotic features; I10 Essential (primary) hypertension; J44.9 Chronic obstructive pulmonary disease, unspecified; F29 Unspecified psychosis not due to a substance or known physiological condition; R45.851 Suicidal ideations; F41.9 Anxiety disorder, unspecified; G89.29 Other chronic pain; M51.369 Other intervertebral disc degeneration, lumbar region without mention of lumbar back pain or lower extremity pain; Z79.899 Other long term (current) drug therapy
CPT/HCPCS: 36415; 80048-TC; 80053-TC; 80061-TC; 80076-TC; 85025-TC; 87081-TC; 94760-TC; 94761-TC; 94799-TC; G0480

== ENCOUNTER 2025-06-10 01:12 | Inpatient (IN) | payer MEDICARE, MEDICAID ==
[~2025-06-10] VITALS: Ht 177.8 cm; Wt 68.0 kg
[~2025-06-10 01:12] MED LIST changes: +GABA300C PO; +LIDO1ADH82 TP; -LIDO30AD10 TP
[2025-06-10] MEDS ORDERED: HYDROCODONE/APAP 5/325MG TABLET ONE (03:43)
[2025-06-10] MEDS: HYDROCODONE/APAP 5/325MG TABLET PO ONE (03:45)
[2025-06-10 04:15] LABS: PLATELET COUNT (AUTO) 270 K/uL (150-450); RED BLOOD CELL COUNT(AUTO) 4.37 MIL/uL (4.5-6.0); RED CELL DISTRIBUTION WIDTH 15.9 % (11.5-15.0); WHITE BLOOD COUNT (AUTO) 4.3 K/uL (4.3-11.0)
[2025-06-10 04:31] LABS: CALCIUM, SERUM 9.2 mg/dL (8.5-10.1); CREATININE 1.4 mg/dL (0.6-1.3); SODIUM SERUM 140 mmol/L (136-145); UREA NITROGEN, BLOOD 16 mg/dL (7-18)
[2025-06-10 04:31] LABS: APPEARANCE,URINE CLEAR (CLEAR); BLOOD, URINE NEGATIVE Ery/uL (NEGATIVE); LEUKOCYTE ESTERASE ,URINE NEGATIVE (NEGATIVE); NITRITE, URINE NEGATIVE (NEGATIVE); UGLUCOSE NEGATIVE (NEGATIVE)
[2025-06-10 04:37] LABS: ASPARTATE AMINOTRANSFERASE 14 U/L (15-37); TOTAL PROTEIN, SERUM 8.3 g/dL (6.4-8.2)
[2025-06-10 04:37] LABS: BARBITURATE, URINE NEGATIVE (NEGATIVE); BENZODIAZEPINE, URINE NEGATIVE (NEGATIVE); CANNABINOID, URINE NEGATIVE (NEGATIVE); COCCAINE, URINE NEGATIVE (NEGATIVE); OPIATE, URINE NEGATIVE (NEGATIVE)
[2025-06-10 04:39] LABS: ALCOHOL, BLOOD < 3 mg/dL (0-10)
[2025-06-10 04:39] LABS: AMPHETAMINE, URINE POSITIVE (NEGATIVE)
[2025-06-10 04:45] LABS: ADD URINE CULTURE NO
[2025-06-10 09:15] VITALS: BP 104/80; TEMP 98.2; O2SAT 98
[2025-06-10] MEDS: BLOOD SUGAR DIAGNOSTIC 1 EACH STRIP IN ONE (09:29)
[2025-06-10] MEDS ORDERED: MAGNESIUM HYDROXIDE 30 ML UDC PO PRN (09:30)
[2025-06-10] MEDS ORDERED: MAG HYDROX/AL HYDROX/SIMETH 30 ML UDC PO PRN (09:30)
[2025-06-10] MEDS ORDERED: ZOLPIDEM TARTRATE 5 MG TABLET PO PRN (09:30)
[2025-06-10] MEDS: AMLODIPINE BESYLATE 5 MG TABLET PO SCH (12:30)
[2025-06-10] MEDS: GABAPENTIN 100 MG CAPSULE PO SCH (12:30)
[2025-06-10] MEDS: IBUPROFEN 600 MG TABLET PO SCH (12:30)
[2025-06-10] MEDS: HYDROCODONE/APAP 5/325MG TABLET PO PRN (15:23)
[2025-06-10 16:00] VITALS: BP 126/93; TEMP 97.9; O2SAT 96
[2025-06-10] MEDS ORDERED: GABAPENTIN 300 MG CAPSULE PO SCH (17:00)
[2025-06-10 20:20] VITALS: BP 135/80; TEMP 97.8; O2SAT 98
[2025-06-10] MEDS: QUETIAPINE FUMARATE 100 MG TABLET PO SCH (21:09)
[2025-06-11 08:00] VITALS: BP 101/78; TEMP 99.1; O2SAT 96
[2025-06-11 08:04] LABS: PLATELET COUNT (AUTO) 265 K/uL (150-450); RED BLOOD CELL COUNT(AUTO) 4.20 MIL/uL (4.5-6.0); RED CELL DISTRIBUTION WIDTH 15.8 % (11.5-15.0); WHITE BLOOD COUNT (AUTO) 4.4 K/uL (4.3-11.0)
[2025-06-11 08:31] LABS: PHOSPHORUS 2.7 mg/dL (2.5-4.9)
[2025-06-11 09:14] LABS: ASPARTATE AMINOTRANSFERASE 19.0 U/L (15-37); CALCIUM, SERUM 8.9 mg/dL (8.5-10.1); CREATININE 1.1 mg/dL (0.6-1.3); SODIUM SERUM 142.0 mmol/L (136-145); TOTAL PROTEIN, SERUM 7.4 g/dL (6.4-8.2); UREA NITROGEN, BLOOD 14.0 mg/dL (7-18)
[2025-06-11 09:16] LABS: LDL 61.0 mg/dL (0-99)
[2025-06-11] MEDS: LIDOCAINE 5% (PATCH) 1 EA PATCH TP SCH (09:18)
[2025-06-11] MEDS: VENLAFAXINE XR 37.5 MG CAP.SR.24H PO SCH (09:19)
[2025-06-11 16:25] VITALS: BP 127/84; TEMP 98.8; O2SAT 98
[2025-06-11] MEDS: ACETAMINOPHEN 325 MG TABLET PO PRN (21:05)
[2025-06-11 21:29] VITALS: BP 130/96; TEMP 98.6; O2SAT 97
[2025-06-12 08:00] VITALS: BP 99/65; TEMP 98.1; O2SAT 97
[2025-06-12 16:00] VITALS: BP 119/84; TEMP 98.1; O2SAT 99
[2025-06-12 20:56] VITALS: BP 117/86; TEMP 98.2; O2SAT 98
[2025-06-13 08:00] VITALS: BP 101/82; TEMP 98.8; O2SAT 96
[2025-06-13] MEDS: LORAZEPAM 1 MG TABLET PO PRN (15:16)
[2025-06-13 16:00] VITALS: BP 118/86; TEMP 98.2; O2SAT 99
[2025-06-13 20:09] VITALS: BP 112/89; TEMP 97.5; O2SAT 99
[2025-06-14 08:00] VITALS: BP 121/82; TEMP 97.9; O2SAT 98
[2025-06-14] MEDS: GABAPENTIN 100 MG CAPSULE PO SCH (13:03)
[2025-06-14 16:00] VITALS: BP 121/86; TEMP 98.6; O2SAT 98
[2025-06-14 20:38] VITALS: BP 125/84; TEMP 98.6; O2SAT 98
[2025-06-14] MEDS: QUETIAPINE FUMARATE 100 MG TABLET PO SCH (21:32)
[2025-06-15 08:44] VITALS: BP 105/69; TEMP 98.2; O2SAT 98
[2025-06-15 15:30] VITALS: BP 124/83; TEMP 98.1; O2SAT 98
[2025-06-15 16:01] VITALS: BP 124/83; TEMP 98.1; O2SAT 98
[2025-06-15 20:05] VITALS: BP 124/84; TEMP 98.1; O2SAT 100
[2025-06-16 08:00] VITALS: BP 105/68; TEMP 98.7; O2SAT 98
[2025-06-16 08:12] LABS: PLATELET COUNT (AUTO) 252 K/uL (150-450); RED BLOOD CELL COUNT(AUTO) 4.03 MIL/uL (4.5-6.0); RED CELL DISTRIBUTION WIDTH 15.9 % (11.5-15.0); WHITE BLOOD COUNT (AUTO) 4.0 K/uL (4.3-11.0)
[2025-06-16 08:16] LABS: ASPARTATE AMINOTRANSFERASE 11.0 U/L (15-37); CALCIUM, SERUM 8.9 mg/dL (8.5-10.1); CREATININE 1.1 mg/dL (0.6-1.3); PHOSPHORUS 3.4 mg/dL (2.5-4.9); SODIUM SERUM 140.0 mmol/L (136-145); TOTAL PROTEIN, SERUM 6.5 g/dL (6.4-8.2); UREA NITROGEN, BLOOD 11.0 mg/dL (7-18)
[2025-06-16] MEDS ORDERED: VENL37.55 PO (08:42)
[2025-06-16] MEDS ORDERED: GABA300C PO (08:42)
[2025-06-16] MEDS ORDERED: QUET200T PO (08:42)
[2025-06-16 08:46] VITALS: BP 107/71
[2025-06-16 09:28] VITALS: BP 95/65; O2SAT 94
[2025-06-16 14:05] VITALS: BP 137/88; O2SAT 97
== END 2025-06-16 14:05 | disposition home or self-care (01) | DRG 885 ==
LOC: ER 01:14 → GPS 06:38
PROVIDERS: ADMIT Psychiatry & Neurology Psychiatry; ATTEND Nurse Practitioner Acute Care
DX: F32.3 Major depressive disorder, single episode, severe with psychotic features (principal); N17.9 Acute kidney failure, unspecified; F29 Unspecified psychosis not due to a substance or known physiological condition; I10 Essential (primary) hypertension; J44.9 Chronic obstructive pulmonary disease, unspecified; F15.10 Other stimulant abuse, uncomplicated; D64.9 Anemia, unspecified; G31.9 Degenerative disease of nervous system, unspecified; G89.29 Other chronic pain; M41.9 Scoliosis, unspecified; F39 Unspecified mood [affective] disorder; F41.9 Anxiety disorder, unspecified; Z79.899 Other long term (current) drug therapy; Z79.51 Long term (current) use of inhaled steroids
CPT/HCPCS: 36415; 80048-TC; 80053-TC; 80061-TC; 80076-TC; 81001; 82962-TC; 83735-TC; 84100-TC; 85025-TC; G0480